=== PATIENT | female | born 1945 | race Caucasian/White ===

== ENCOUNTER 2017-05-26 07:39 | Day surgery (SDC) | payer MEDICARE, BC ==
[~2017-05-26 07:39] MED LIST: ACETAMINOPHEN 325 MG TABLET PO PRN; ACETYLCHOLINE CHLORIDE 20 DROP KIT IO PRN; BUPIVACAINE HCL/PF 30 ML VIAL IJ PRN; CYCLOPENTOLATE HCL 20 DROP BTL RIGHTEYE PRN; DEXTROSE 5%-0.5 NORMAL SALINE 1,000 ML IV PRN; EPINEPHrine 1 MG/ML AMPUL IO PRN; HYALURONATE SODIUM 0.4 ML DISP.SYRIN IO PRN; HYALURONATE SODIUM 0.85 ML DISP.SYRIN IO PRN; LIDOCAINE HCL/PF 200 MG/5 ML AMPUL TP PRN; LIDOCAINE HCL/PF 5 ML VIAL IO PRN; NORMAL SALINE 3 ML BOX IV PRN; TETRACAINE HCL 150 DROP BTL OP PRN
[2017-05-26] MEDS: TROPICAMIDE 150 DROP BTL RIGHTEYE PRN ×3 (08:14→08:40)
[2017-05-26] MEDS: PHENYLEPHRINE HCL 50 DROP BTL RIGHTEYE PRN ×3 (08:14→08:40)
[2017-05-26] MEDS ORDERED: RINGERS SOLUTION,LACTATED 1,000 ML IV ONE (08:23)
[2017-05-26] MEDS ORDERED: RINGERS SOLUTION,LACTATED 1,000 ML IV PRN (08:34)
[2017-05-26] MEDS ORDERED: LIDOCAINE HCL/PF 200 MG/5 ML AMPUL TP ONE (08:55)
[2017-05-26] MEDS ORDERED: EPINEPHrine 1 MG/ML AMPUL IR ONE (08:55)
[2017-05-26] MEDS ORDERED: LIDOCAINE HCL/PF 5 ML VIAL IJ ONE ×2 (08:55)
[2017-05-26] MEDS ORDERED: HYALURONATE SODIUM 0.85 ML DISP.SYRIN IO ONE (08:55)
[2017-05-26] MEDS ORDERED: ACETYLCHOLINE CHLORIDE 20 DROP KIT IO ONE ×3 (09:05→09:08)
[2017-05-26 10:42] VITALS: BP 158/89
== END 2017-05-26 07:40 | disposition home or self-care (01) ==
LOC: AMB 07:39
PROVIDERS: ATTEND Ophthalmology
PROC: 08RJ3JZ Replacement of Right Lens with Synthetic Substitute, Percutaneous Approach (ICD-10-PCS; principal; 2017-05-26 08:45)
DX: H26.9 Unspecified cataract (principal); E11.9 Type 2 diabetes mellitus without complications; E78.5 Hyperlipidemia, unspecified; J44.9 Chronic obstructive pulmonary disease, unspecified; K21.9 Gastro-esophageal reflux disease without esophagitis; F41.9 Anxiety disorder, unspecified; F17.210 Nicotine dependence, cigarettes, uncomplicated; Z68.29 Body mass index [BMI] 29.0-29.9, adult

== ENCOUNTER 2020-01-26 14:52 | Inpatient (IN) ==
--- NOTE | 2020-01-26 15:48 | ERNOTE ---
Dyspnea - Date Date of Service: 01/26/20 - General Presenting Symptoms: shortness of breath Time Seen by Provider: 01/26/20 15:37 Source: patient, RN notes reviewed, old records Exam Limitations: no limitations - Immun/Allergies/Home Medications Immunizations: IMMUNIZATION HX Immunizations Up to Date Yes History of Influenza Vaccine Yes Hx Pneumococcal Vaccination Yes Allergies/Adverse Reactions: Allergies Iodinated Contrast Media [Iodinated Contrast Media - IV Dye] Allergy (Severe, Verified 01/26/20 15:31) Anaphylaxis iodine Allergy (Severe, Verified 01/26/20 15:31) Anaphylaxis Fish Containing Products Allergy (Intermediate, Verified 01/26/20 15:31) HIVES, SHAKING, "OUT OF IT COMPLETELY" amoxicillin trihydrate [From Amoxil] Allergy (Mild, Verified 01/26/20 15:31) Hives Sulfa (Sulfonamide Antibiotics) Allergy (Mild, Verified 01/26/20 15:31) numbness to face codeine Adverse Reaction (Mild, Verified 01/26/20 15:31) N/V Home Medications: HOME MEDICATIONS Sucralfate [Carafate] 1 gm PO BID 09/16/16 [Last Taken 12/24/18] Ascorbic Acid [Vitamin C] 100 mg PO DAILY 05/16/17 [Last Taken 12/24/18] Cholecalciferol (Vitamin D3) [Vitamin D] 2,000 unit PO DAILY 05/16/17 [Last Taken 12/24/18] HYDROcodone/ACETAMINOPHEN [[place] 5-325] 1 tab PO Q4H PRN 05/16/17 [Last Taken 12/23/18] blood sugar diagnostic See Dose Instructions .ROUTE .MEDSUPPLY #20 ea 06/10/18 [Last Taken 12/24/18] blood-glucose meter See Dose Instructions .ROUTE .MEDSUPPLY #1 ea 06/10/18 [Last Taken 12/24/18] compressor, for nebulizer See Dose Instructions .ROUTE .MEDSUPPLY #1 ea 06/10/18 [Last Taken Unknown] cyanocobalamin (vitamin B-12) 1,000 mcg tablet 1,000 mcg PO DAILY 06/10/18 [Last Taken 12/24/18] lancets 30 gauge See Dose Instructions .ROUTE .MEDSUPPLY #25 ea 06/10/18 [Last Taken 12/24/18] morphine 15 mg tablet,extended release 15 mg PO Q12H tab 06/16/18 [Last Taken 12/24/18] ipratropium 0.5 mg-albuterol 3 mg (2.5 mg base)/3 mL nebulization soln 3 ml IH QID #540 ml 10/06/18 [Last Taken Unknown] albuterol sulfate 90 mcg/actuation aerosol inhaler 2 inh IH Q4H PRN #18 g 11/26/18 [Last Taken 1 Day Ago ~12/24/18] glimepiride 1 mg tablet 1 mg PO DAILY #90 tab 03/24/19 [Last Taken Unknown] spironolactone 25 mg tablet 25 mg PO DAILY #90 tab 05/26/19 [Last Taken Unknown] arformoterol 15 mcg/2 mL solution for nebulization 15 mcg IH BID #120 ml 07/28/19 [Last Taken Unknown] budesonide 0.5 mg/2 mL suspension for nebulization 0.5 mg IH BID #120 ml 07/28/19 [Last Taken Unknown] fluticasone propionate 50 mcg/actuation nasal spray,suspension 2 spray TERRI BID #16 g 07/28/19 [Last Taken Unknown] ipratropium bromide 0.02 % solution for inhalation 2.5 ml IH BID #125 ml 07/28/19 [Last Taken Unknown] metformin 1,000 mg tablet 1,000 mg PO BID #180 tab 07/28/19 [Last Taken Unknown] levothyroxine 25 mcg tablet 25 mcg PO DAILY #90 tab 08/09/19 [Last Taken Unknown] azithromycin 250 mg tablet 250 mg PO DAILY #90 tab 09/30/19 [Last Taken Unknown] prednisone 20 mg tablet 20 mg PO DAILY #90 tab 11/03/19 [Last Taken Unknown] furosemide 40 mg tablet 40 mg PO DAILY #90 tab 12/02/19 [Last Taken Unknown] ondansetron 4 mg disintegrating tablet 8 mg PO BID PRN #90 tab 12/02/19 [Last Taken Unknown] sertraline 50 mg tablet 50 mg PO BID #180 tab 12/02/19 [Last Taken Unknown] losartan 50 mg tablet 50 mg PO DAILY #90 tab 12/24/19 [Last Taken Unknown] levofloxacin 500 mg tablet 500 mg PO DAILY 10 Days #10 tab 01/18/20 [Last Taken Unknown] omeprazole 40 mg capsule,delayed release 40 mg PO DAILY #90 cap 01/18/20 [Last Taken Unknown] simvastatin 20 mg tablet 20 mg PO HS #90 tab 01/18/20 [Last Taken Unknown] - History of Present Illness Narrative: Paris is a 74 year old female sent to the ED from her PCP's office for chest pain and shortness of breath. She reports that she is always short of breath, but she began having pain in her right scapula that radiated around into her chest 3 days ago. She has COPD and has been on Zithromax for a cough with purul ent sputum for 6 days. She is also chronically on prednisone. Her cough continues to be productive of yellow sputum. She wears oxygen at night but has been having to use it during the day for the past few days due to her dyspnea. She denies fevers or chills. She also reports being unable to lay down to sleep at night. Her oxygen saturation was 84% on room air in the clinic and 89% on arrival here. Date (Duration): 01/23/20 Initiating event: Reports: unknown Frequency of episodes: Reports: occassional episodes Modifying Factors - (Improves): Reports: oxygen, rest Modifying Factors (Worsens): Reports: activity, coughing, lying down Associated Symptoms-Dyspnea: Reports: chest pain/discomfort, cough, wheezing, ankle/leg swelling - chronic, not worse than usual. Denies: fever/chills, leg/calf pain Prior Treatment: Reports: recently seen Review of Systems - Review of Systems Constitutional: Present: fatigue, malaise, decreased activity level. Absent: fever, chills EYE: Present: no symptoms reported ENT: Absent: nose congestion, sore throat Respiratory: Present: shortness of breath, cough, orthopnea, wheezing Cardiology: Present: chest pain. Absent: syncope, claudication Gastrointestinal/Abdominal: Absent: nausea, vomiting, abdominal pain Genitourinary: Present: no symptoms reported Musculoskeletal: Absent: muscle pain, joint pain Skin: Absent: rash, lesions Neurological: Absent: headache, dizziness/light-headedness Endocrine: Present: no symptoms reported Hematologic/Lymphatic: Present: easy bruising, easy bleeding Psych: Absent: anxiety Medical History (Last Reviewed 01/26/20 @ 17:23 by Kelsi Donato NP) Wears glasses (Chronic) Wears dentures (Chronic) upper and bottom Myocardial infarction (Chronic) Patient reports two years ago in 2017 stress test was done and showed evidence of [place] in past, they reported not knowing when. Lupus (Chronic) Lung cancer (Chronic) Onset Date: ~2017 non-small cell carcinoma, left upper lobe stage 2 Lumbar spondylosis (Chronic) IBS (irritable bowel syndrome) (Chronic) Hypothyroidism (Chronic) hyperlipidemia (Chronic) Hepatocellular carcinoma (Chronic) GERD (gastroesophageal reflux disease) (Chronic) Fibromyalgia (Chronic) diabetes type II (Chronic) Depression (Chronic) COPD (chronic obstructive pulmonary disease) (Chronic) Onset Date: ~2015 Increase prednisone 10 mg 4 times a day for 10 days then 10 mg daily Augmentin 875 twice daily for 10 days Continue with DuoNeb every 2-4 hour as needed She was given instruction on how to apply for extra help at Medicare part D To call back if no better Advised to stop smoking Continue all current medication Anxiety (Chronic) Current tobacco use 3 cigs per day Full dentures No history of alcohol use Weight loss, abnormal 20 lbs Arthritis Cataract, bilateral Chronic bronchitis Chronic pain Chronic, continuous use of opioids Macular hole of left eye Onset Date: ~07/2016 Myofascial pain Paralyzed vocal cords Onset Date: ~03/02/18 paralyzed left vocal chord, no sign of malignancy Postlaminectomy syndrome of lumbar region Postlaminectomy syndrome, cervical Primary localized osteoarthrosis of lower leg LEFT Risk taking behavior Surgical History: Surgical History (Last Reviewed 01/26/20 @ 17:24 by Kelsi Donato NP) H/O breast biopsy H/O dilation and curettage multiple H/O esophagogastroduodenoscopy Onset Date: 07/04/16 07/04/16 Chris-clotest negative. H/O neck surgery Onset Date: ~2005 Dr. Wagoner H/O: hysterectomy Onset Date: ~1975 History of appendectomy Onset Date: ~1957 History of bronchoscopy Onset Date: ~201711/19/2017- Giuliana; left upper lobe endobronchial biopsies 12/12/17- Dr. Interiano [facility] History of temporal artery biopsy Onset Date: 12/24/18 [id number] consistent w/treated temporal arteritis. History of tonsillectomy Onset Date: ~1949 Hx of colonoscopy Onset Date: 07/04/16 10/12/07 Bagan-slightly redundant colon, moderate sigmoid diverticulosis. 07/04/16 Chris-normal. Previous back surgery Onset Date: ~1985 S/P epidural steroid injection [facility] - Porfirio Ruiz, [employer] cervical epidural steroid injection at C5-6- has had multiple Wrist fracture, left Onset Date: ~1998 history of arthroscopy of wrist Onset Date: 07/29/01 Dr Owen-w/debridement of triangular fibrocartilage and joint left wrist indirect laryngoscopy with vocal chord injection Onset Date: 03/02/18 Jimbo; left vocal chord injection- prolaryn foam injection left pars plana vitrectomy Onset Date: 02/21/16 ILM peel 14% C3F8 gas OS for chronic macular hole mediastinoscopy Onset Date: 12/12/17 Dr. Interiano [facility]- benign lymphoid tissue from right and left paratracheal lymph nodes, subcarinal lymph node sampling yielded no lymphoid tissue microwave ablation of mass of liver stress test Onset Date: ~11/24/17 normal Family History: Family History (Last Reviewed 01/26/20 @ 17:24 by Kelsi Donato NP) Brother Diabetes Cancer 1 brother w/prostate ca, 1 brother w/lung ca, 1 brother w/pancreatic and liver ca Father , age 70's-FL Heart disease Alcoholic Myocardial infarction Emphysema lung Mother , age 81-diabetes Heart disease Heart failure Diabetes Cardiac dysrhythmia Sister Ovarian cancer 1 sister Diabetes Breast cancer 1 sister COPD (chronic obstructive pulmonary disease) 1 sister Sister COPD (chronic obstructive pulmonary disease) Heart disease Social History: (Last Reviewed 01/26/20 @ 17:24 by Kelsi Donato NP) Social History: Marital status: / household members: none number of children: 4 current occupational status: retired Highest education level completed: high school graduate Service: No Tobacco: Smoking Status: Current every day smoker tobacco type: cigarettes Smoking cigarettes per day: 10.0 Smoking packs per day: 0.5 Alcohol: alcohol intake: never Substance Use: substance use type: does not use Dietary Habits: caffeine: Yes Type: coffee, tea Personal Safety: victim of physical abuse: No victim of emotional abuse: No Physical Exam - Physical Exam General Appearance: Present: wd/wn, alert, mild distress Head Exam: Present: normal inspection Eye Exam: Normal inspection: bilateral Neck: Present: normal inspection, nontender, supple, full range of motion Respiratory: Present: accessory muscle use - dyspneic at rest, worse with exertion, expiration (prolonged), wheezing - throughout lung valenzuela on expiration Cardiovascular/Chest: Present: regular rate, rhythm, no murmur, normal peripheral pulses Gastrointestinal/Abdominal: Present: nontender, nondistended, soft Back Exam: Present: normal inspection, no vertebral tenderness Extremity Exam: Present: non-tender, normal range of motion, pedal edema - mild Neurological Exam: Present: alert, oriented, normal mood/affect, no motor/sensory deficits Skin Exam: Present: warm/dry, pallor Progress - Results and Orders Patient's Lab Results:: I have reviewed the patient's lab results. - Vital Signs Patient's Vital Signs:: I have reviewed the patient's vital signs. Vital Signs: Vital Signs 01/26/20 15:28 Temperature 36.7 C Pulse Rate 102 H Respiratory Rate 20 Blood Pressure 144/61 O2 Sat by Pulse Oximetry 92 L - X-Ray X-Ray #1 X-Ray: chest Interpretation: Reviewed by me X-ray Comments: No acute cardiopulmonary findings - Progress/Reassessment Chief Complaint: Dyspnea Progress:: Improved Plan - Plan Plan: The patient has been treated for a COPD exacerbation for 6 days with Zithromax without improvement. She continues to have dyspnea, a cough with purulent sputum and is not able to maintain her oxygen saturation above 89% on room air. Her lactic acid is elevated at 3.7 but she does not meet SIRS criteria. Blood cultures are pending. She is receiving a liter of NS and a gram of Rocephin IV. Her Ddimer is elevated at 0.62 but is not significant when adjusted for age. BNP is mildly elevated but the patient has no signs of overt failure. She is anemic with a Hgb of 8. This has been gradually declining Dr. Anna was contacted and the patient will be admitted to observation status. Departure Clinical Impression: COPD exacerbation, Failure of outpatient treatment, Hypoxia - Departure Disposition: Still a patient Condition: Stable Referrals: Jozef Rosario MD [Primary Care Provider] -
[2020-01-26 16:12] LABS: Hematocrit 26.9 % (37.0-47.0); Mean Cell Volume 87.6 fl (78-100); Mean Corpuscular Hemoglobin 26.1 pg (27-31); Mean Corpuscular Hgb Conc 29.7 g/dl (32-36); Mean Platelet Volume 8.8 fl (8-12.5); Neutrophil # 6.7 K/mm3 (1.3-6.0); Platelet Count 243 K/mm3 (150-450); Red Blood Count 3.07 M/mm3 (4.2-5.4); Red Cell Distribution Width 16.5 % (11.5-14.0); White Blood Count 7.4 K/mm3 (4.0-10.5)
[2020-01-26 16:23] LABS: Albumin * 3.3 gm/dl (3.4-5.0); Anion Gap 16.2 mmol/L (6.8-13.8); BUN/Creatinine Ratio 12.4 (9.0-21.6); Bilirubin, Total 0.5 mg/dL (0.0-1.1); Ca. Corrected For Albumin 9.2 mg/dL (8.4-10.2); Carbon Dioxide 26.2 mmol/L (24-32.6); Potassium 4.4 mmol/L (3.4-4.6); Total Protein 6.7 gm/dL (6.2-8.2); Troponin I 0.017 ng/mL (0.00-0.10)
[2020-01-26] MEDS ORDERED: cefTRIAXone SODIUM 1,000 MG/100 ML BAG IV ONE (16:39)
[2020-01-26] MEDS ORDERED: NORMAL SALINE 1,000 ML IV ONE (16:39)
[2020-01-26] MEDS ORDERED: MORPHINE SULFATE 2 MG/ML DISP.SYRIN IV ONE (16:58)
[2020-01-26] MEDS ORDERED: MORPHINE SULFATE 2 MG/ML DISP.SYRIN ONE (17:25)
[2020-01-26] MEDS ORDERED: METHYLPREDNISOLONE SOD SUCC/PF 125 MG/2 ML VIAL IV ONE (18:40)
[2020-01-26] MEDS ORDERED: ONDANSETRON 4 MG TAB.RAPDIS PO PRN (18:41)
--- NOTE | 2020-01-26 18:46 | HP ---
Chief Complaint - Chief Complaint Date of Service: 01/26/20 Time of Service: 18:46 Chief Complaint: Shortness of breath History of Present Illness: Paris is a 74 yo female with PMH of COPD and lung cancer. She is in remission from lung cancer but frequently gets COPD exacerbations. She called into Dr. Rosario's office a few days ago with symptoms of COPDE and was started on azithromycin, she reports not feeling better and presented to the ER today. She was hypoxic with oxygen at 84% and placed on 2lpm via NC. She uses oxygen just at night at home. She follows with Dr. Bates (Pulmonology). She denies fever, chills, sweats, or body aches. She denies recent ill exposures. Chest xray shows no acute changes. Medical History (Last Reviewed 01/26/20 @ 18:50 by Ledy Esteban RN) Wears glasses (Chronic) Wears dentures (Chronic) upper and bottom Myocardial infarction (Chronic) Patient reports two years ago in 2017 stress test was done and showed evidence of NV in past, they reported not knowing when. Lupus (Chronic) Lung cancer (Chronic) Onset Date: ~2017 non-small cell carcinoma, left upper lobe stage 2 Lumbar spondylosis (Chronic) IBS (irritable bowel syndrome) (Chronic) Hypothyroidism (Chronic) hyperlipidemia (Chronic) Hepatocellular carcinoma (Chronic) GERD (gastroesophageal reflux disease) (Chronic) Fibromyalgia (Chronic) diabetes type II (Chronic) Depression (Chronic) COPD (chronic obstructive pulmonary disease) (Chronic) Onset Date: ~2015 Increase prednisone 10 mg 4 times a day for 10 days then 10 mg daily Augmentin 875 twice daily for 10 days Continue with DuoNeb every 2-4 hour as needed She was given instruction on how to apply for extra help at Medicare part D To call back if no better Advised to stop smoking Continue all current medication Anxiety (Chronic) Current tobacco use 3 cigs per day Full dentures No history of alcohol use Weight loss, abnormal 20 lbs Arthritis Cataract, bilateral Chronic bronchitis Chronic pain Chronic, continuous use of opioids Macular hole of left eye Onset Date: ~07/2016 Myofascial pain Paralyzed vocal cords Onset Date: ~03/02/18 paralyzed left vocal chord, no sign of malignancy Postlaminectomy syndrome of lumbar region Postlaminectomy syndrome, cervical Primary localized osteoarthrosis of lower leg LEFT Risk taking behavior Surgical History: Surgical History (Last Reviewed 01/26/20 @ 18:50 by Ledy Esteban, QUINN) H/O breast biopsy H/O dilation and curettage multiple H/O esophagogastroduodenoscopy Onset Date: 07/04/16 07/04/16 Chris-clotest negative. H/O neck surgery Onset Date: ~2005 Dr. Wagoner H/O: hysterectomy Onset Date: ~1975 History of appendectomy Onset Date: ~1957 History of bronchoscopy Onset Date: ~201711/19/2017- Giuliana; left upper lobe endobronchial biopsies 12/12/17- Dr. Jaydon VERMA History of temporal artery biopsy Onset Date: 12/24/18 [id number] consistent w/treated temporal arteritis. History of tonsillectomy Onset Date: ~1949 Hx of colonoscopy Onset Date: 07/04/16 10/12/07 Mikel-slightly redundant colon, moderate sigmoid diverticulosis. 07/04/16 Chris-normal. Previous back surgery Onset Date: ~1985 S/P epidural steroid injection [facility] - Porfirio Ruiz, STEERSMAN cervical epidural steroid injection at C5-6- has had multiple Wrist fracture, left Onset Date: ~1998 history of arthroscopy of wrist Onset Date: 07/29/01 Dr Owen-w/debridement of triangular fibrocartilage and joint left wrist indirect laryngoscopy with vocal chord injection Onset Date: 03/02/18 Jimbo; left vocal chord injection- prolaryn foam injection left pars plana vitrectomy Onset Date: 02/21/16 ILM peel 14% C3F8 gas OS for chronic macular hole mediastinoscopy Onset Date: 12/12/17 Dr. Interiano CATRACHO- benign lymphoid tissue from right and left paratracheal lymph nodes, subcarinal lymph node sampling yielded no lymphoid tissue microwave ablation of mass of liver stress test Onset Date: ~11/24/17 normal Family History: Family History (Last Reviewed 01/26/20 @ 18:50 by Ledy Esteban, QUINN) Brother Diabetes Cancer 1 brother w/prostate ca, 1 brother w/lung ca, 1 brother w/pancreatic and liver ca Father , age 70's-NV Heart disease Alcoholic Myocardial infarction Emphysema lung Mother , age 81-diabetes Heart disease Heart failure Diabetes Cardiac dysrhythmia Sister Ovarian cancer 1 sister Diabetes Breast cancer 1 sister COPD (chronic obstructive pulmonary disease) 1 sister Sister COPD (chronic obstructive pulmonary disease) Heart disease Social History: (Last Updated 01/26/20 @ 18:51 by Ledy Esteban RN) Social History: Marital status: / household members: none number of children: 4 current occupational status: retired Highest education level completed: high school graduate Service: No Tobacco: Smoking Status: Current every day smoker tobacco type: cigarettes Smoking cigarettes per day: 0 Smoking packs per day: 0 Years smoked: 51 Smoking End Date: 07/24/19 Alcohol: alcohol intake: never Substance Use: substance use type: does not use Dietary Habits: caffeine: Yes Type: coffee, tea Personal Safety: victim of physical abuse: No victim of emotional abuse: No Review Of Systems (GEN) - Review of Systems Generalized/Overall Review: Present: Weakness. Absent: Chills, Fever EENTM: Present: No Symptoms Reported Respiratory: Present: Cough, Shortness of Breath, Wheezing Cardiac: Present: Chest Pain. Absent: Edema, Palpitations Abdominal: Absent: Nausea, Vomiting Genitourinary: Absent: Burning, Urgency Musculoskeletal: Absent: Joint Pain, Back Pain Neurological: Absent: Headache, Numbness Skin: Absent: Lesions, Rash Endocrine: Absent: Increased Hunger, Increased Thirst Immunizations: IMMUNIZATION HX Immunizations Up to Date Yes History of Influenza Vaccine Yes Hx Pneumococcal Vaccination Yes Allergies/Adverse Reactions: Allergies Allergy/AdvReac Type Severity Reaction Status Date / Time Iodinated Contrast Media Allergy Severe Anaphylaxis Verified 01/26/20 15:31 [Iodinated Contrast Media - IV Dye] iodine Allergy Severe Anaphylaxis Verified 01/26/20 15:31 Fish Containing Products Allergy Intermediate HIVES, Verified 01/26/20 15:31 SHAKING, "OUT OF IT COMPLETELY" amoxicillin trihydrate Allergy Mild Hives Verified 01/26/20 15:31 [From Amoxil] Sulfa (Sulfonamide Allergy Mild numbness Verified 01/26/20 15:31 Antibiotics) to face codeine AdvReac Mild N/V Verified 01/26/20 15:31 Home Medications: HOME MEDICATIONS Sucralfate [Carafate] 1 gm PO BID 09/16/16 [Last Taken 12/24/18] Ascorbic Acid [Vitamin C] 100 mg PO DAILY 05/16/17 [Last Taken 12/24/18] Cholecalciferol (Vitamin D3) [Vitamin D] 2,000 unit PO DAILY 05/16/17 [Last Taken 12/24/18] HYDROcodone/ACETAMINOPHEN [Zap 5-325] 1 tab PO Q4H PRN 05/16/17 [Last Taken 12/23/18] blood sugar diagnostic See Dose Instructions .ROUTE .MEDSUPPLY #20 ea 06/10/18 [Last Taken 12/24/18] blood-glucose meter See Dose Instructions .ROUTE .MEDSUPPLY #1 ea 06/10/18 [Last Taken 12/24/18] compressor, for nebulizer See Dose Instructions .ROUTE .MEDSUPPLY #1 ea 06/10/18 [Last Taken Unknown] cyanocobalamin (vitamin B-12) 1,000 mcg tablet 1,000 mcg PO DAILY 06/10/18 [Last Taken 12/24/18] lancets 30 gauge See Dose Instructions .ROUTE .MEDSUPPLY #25 ea 06/10/18 [Last Taken 12/24/18] morphine 15 mg tablet,extended release 15 mg PO Q12H tab 06/16/18 [Last Taken 12/24/18] ipratropium 0.5 mg-albuterol 3 mg (2.5 mg base)/3 mL nebulization soln 3 ml IH QID #540 ml 10/06/18 [Last Taken Unknown] glimepiride 1 mg tablet 1 mg PO DAILY #90 tab 03/24/19 [Last Taken Unknown] spironolactone 25 mg tablet 25 mg PO DAILY #90 tab 05/26/19 [Last Taken Unknown] arformoterol 15 mcg/2 mL solution for nebulization 15 mcg IH BID #120 ml 07/28/19 [Last Taken Unknown] budesonide 0.5 mg/2 mL suspension for nebulization 0.5 mg IH BID #120 ml 07/28/19 [Last Taken Unknown] fluticasone propionate 50 mcg/actuation nasal spray,suspension 2 spray TERRI BID #16 g 07/28/19 [Last Taken Unknown] ipratropium bromide 0.02 % solution for inhalation 2.5 ml IH BID #125 ml 07/28/19 [Last Taken Unknown] metformin 1,000 mg tablet 1,000 mg PO BID #180 tab 07/28/19 [Last Taken Unknown] levothyroxine 25 mcg tablet 25 mcg PO DAILY #90 tab 08/09/19 [Last Taken Unknown] azithromycin 250 mg tablet 250 mg PO DAILY #90 tab 09/30/19 [Last Taken Unknown] prednisone 20 mg tablet 20 mg PO DAILY #90 tab 11/03/19 [Last Taken Unknown] furosemide 40 mg tablet 40 mg PO DAILY #90 tab 12/02/19 [Last Taken Unknown] ondansetron 4 mg disintegrating tablet 8 mg PO BID PRN #90 tab 12/02/19 [Last Taken Unknown] sertraline 50 mg tablet 50 mg PO BID #180 tab 12/02/19 [Last Taken Unknown] losartan 50 mg tablet 50 mg PO DAILY #90 tab 12/24/19 [Last Taken Unknown] levofloxacin 500 mg tablet 500 mg PO DAILY 10 Days #10 tab 01/18/20 [Last Taken Unknown] omeprazole 40 mg capsule,delayed release 40 mg PO DAILY #90 cap 01/18/20 [Last Taken Unknown] simvastatin 20 mg tablet 20 mg PO HS #90 tab 01/18/20 [Last Taken Unknown] Albuterol Sulfate [Ventolin HFA] 2 inh INHALATION QID PRN 01/26/20 [Last Taken Unknown] Exam - Exam Vital Signs: Vital Signs - Last Taken Temp 36.7 C 01/26/20 18:07 Pulse 94 01/26/20 18:07 Resp 21 H 01/26/20 18:07 BP 135/57 01/26/20 17:40 Pulse Ox 97 01/26/20 18:07 Constitutional: Present: Alert, Oriented x3, Cooperative ENT Exam: Present: hearing grossly normal Eye Exam: bilateral eye: normal inspection Respiratory: Present: decreased breath sounds, wheezing Cardiovascular/Chest: Present: regular rate, rhythm, no murmur Peripheral Pulses: radial (R): 2+, radial (L): 2+ Abdomen: Present: Normal bowel sounds, soft, nontender, nondistended Extremity: Present: normal capillary refill, lower extremity edema - 1+ Skin Exam: Present: normal color, warm/dry, no cyanosis Appearance: Present: appropriate appearance, appropriate insight Eye contact: Present: cooperative, good eye contact, normal speech Thoughts: Present: normal thought pattern, no apparent hallucination Diagnostic Studies: Abnormal Lab Results 01/26/20 01/26/20 01/26/20 Range/Units 15:59 15:59 15:59 RBC 3.07 L (4.2-5.4) M/mm3 Hgb 8.0 L (12.5-16.0) gm/dL Hct 26.9 L (37.0-47.0) % MCH 26.1 L (27-31) pg MCHC 29.7 L (32-36) g/dl RDW 16.5 H (11.5-14.0) % Immature Gran % (Auto) 1.40 H (0.001-0.429) % Immature Gran # (Auto) 0.10 H (0.000-0.0310) K/mm3 Neutrophils % 91.0 H (42-75.0) % Lymphocytes % 4.1 L (20-51) % Neutrophils # 6.7 H (1.3-6.0) K/mm3 Lymphocytes # 0.30 L (1.5-3.5) k/mm3 D-Dimer 0.62 H (0.19-0.49) ug/mL Plasma Sodium 144 H (130-142) mmol/L Anion Gap 16.2 H (6.8-13.8) mmol/L Est GFR (Non-Af Amer) 50 L (60-130) mL/min Random Glucose 342 H (70-110) mg/dL Lactic Acid, Venous (0.4-2.0) mmol/L ALT 17 L (19-67) U/L B-Natriuretic Peptide (5-325) pg/mL Albumin 3.3 L (3.4-5.0) gm/dl 01/26/20 01/26/20 Range/Units 15:59 16:16 RBC (4.2-5.4) M/mm3 Hgb (12.5-16.0) gm/dL Hct (37.0-47.0) % MCH (27-31) pg MCHC (32-36) g/dl RDW (11.5-14.0) % Immature Gran % (Auto) (0.001-0.429) % Immature Gran # (Auto) (0.000-0.0310) K/mm3 Neutrophils % (42-75.0) % Lymphocytes % (20-51) % Neutrophils # (1.3-6.0) K/mm3 Lymphocytes # (1.5-3.5) k/mm3 D-Dimer (0.19-0.49) ug/mL Plasma Sodium (130-142) mmol/L Anion Gap (6.8-13.8) mmol/L Est GFR (Non-Af Amer) (60-130) mL/min Random Glucose (70-110) mg/dL Lactic Acid, Venous 3.7 H* (0.4-2.0) mmol/L ALT (19-67) U/L B-Natriuretic Peptide 1120 H (5-325) pg/mL Albumin (3.4-5.0) gm/dl Laboratory Results WBC 7.4 K/mm3 (4.0-10.5) 01/26/20 15:59 RBC 3.07 M/mm3 (4.2-5.4) L 01/26/20 15:59 Hgb 8.0 gm/dL (12.5-16.0) L 01/26/20 15:59 Hct 26.9 % (37.0-47.0) L 01/26/20 15:59 MCV 87.6 fl (78-100) 01/26/20 15:59 MCH 26.1 pg (27-31) L 01/26/20 15:59 MCHC 29.7 g/dl (32-36) L 01/26/20 15:59 RDW 16.5 % (11.5-14.0) H 01/26/20 15:59 Plt Count 243 K/mm3 (150-450) 01/26/20 15:59 MPV 8.8 fl (8-12.5) 01/26/20 15:59 Immature Gran % (Auto) 1.40 % (0.001-0.429) H 01/26/20 15:59 Immature Gran # (Auto) 0.10 K/mm3 (0.000-0.0310) H 01/26/20 15:59 Neutrophils % 91.0 % (42-75.0) H 01/26/20 15:59 Lymphocytes % 4.1 % (20-51) L 01/26/20 15:59 Monocytes % 2.3 % (0.0-9) 01/26/20 15:59 Eosinophils % 0.7 % (0.0-3.0) 01/26/20 15:59 Basophils % 0.5 % (0.0-1.0) 01/26/20 15:59 Nucleated RBC % 0.0 k/mm3 (0-1) 01/26/20 15:59 Neutrophils # 6.7 K/mm3 (1.3-6.0) H 01/26/20 15:59 Lymphocytes # 0.30 k/mm3 (1.5-3.5) L 01/26/20 15:59 Monocytes # 0.2 k/mm3 (0.0-1.0) 01/26/20 15:59 Eosinophils # 0.1 k/mm3 (0.0-0.7) 01/26/20 15:59 Absolute Basophils 0.0 k/mm3 (0.0-0.1) 01/26/20 15:59 D-Dimer 0.62 ug/mL (0.19-0.49) H 01/26/20 15:59 Sodium 140 mmol/L (132-142) 01/26/20 15:59 Plasma Sodium 144 mmol/L (130-142) H 01/26/20 15:59 Potassium 4.4 mmol/L (3.4-4.6) 01/26/20 15:59 Chloride 102 mmol/L (97-106) 01/26/20 15:59 Carbon Dioxide 26.2 mmol/L (24-32.6) 01/26/20 15:59 Anion Gap 16.2 mmol/L (6.8-13.8) H 01/26/20 15:59 BUN 14 mg/dL (3-23) 01/26/20 15:59 Creatinine 1.13 mg/dL (0.4-1.4) 01/26/20 15:59 Est GFR (Non-Af Amer) 50 mL/min (60-130) L 01/26/20 15:59 BUN/Creatinine Ratio 12.4 (9.0-21.6) 01/26/20 15:59 Random Glucose 342 mg/dL (70-110) H 01/26/20 15:59 Lactic Acid, Venous 3.7 mmol/L (0.4-2.0) H* 01/26/20 15:59 Calcium 9.0 mg/dL (7.9-10.9) 01/26/20 15:59 Calcium Adj for Albumin 9.2 mg/dL (8.4-10.2) 01/26/20 15:59 Total Bilirubin 0.5 mg/dL (0.0-1.1) 01/26/20 15:59 AST 14 U/L (0-48) 01/26/20 15:59 ALT 17 U/L (19-67) L 01/26/20 15:59 Alkaline Phosphatase 62 U/L (50-170) 01/26/20 15:59 Troponin I 0.017 ng/mL (0.00-0.10) 01/26/20 15:59 B-Natriuretic Peptide 1120 pg/mL (5-325) H 01/26/20 16:16 Total Protein 6.7 gm/dL (6.2-8.2) 01/26/20 15:59 Albumin 3.3 gm/dl (3.4-5.0) L 01/26/20 15:59 Assessment/Plan - Narrative Narrative: Paris is a 74 yo female with: 1) Acute on Chronic Respiratory Failure secondary to COPDE- Requiring 3lpm currently to keep sats >90%. She chronically uses 2lpm via NC at night only 2) COPD Exacerbation - She has deminished lung soungs and wheezing with increased shortness of breath. Chest xray shows no pneumonia. Will treat with rocephin, azithromycin, steroids, duonebs, cornet, and Incentive Spirometer. Will attempt to wean from oxygen with treatment. Will admit to acute inpatient status as she has failed outpatient treatment of azithromycin alone and has acute respiratory failure requiring more oxygen then she does on baseline. 3) Chronic history of lung cancer although reportedly in remission. - Assessment/Plan (1) Acute and chronic respiratory failure with hypoxia Problem: Acute (2) COPD exacerbation Problem: Acute (3) Lung cancer Problem: Chronic Qualifiers: Laterality: left Lung location: upper lobe of lung Qualified Code(s): C34.12 - Malignant neoplasm of upper lobe, left bronchus or lung
[2020-01-26] MEDS: ALBUTEROL SULFATE/IPRATROPIUM 3 ML NEBU IH SCH ×2 (19:46→22:41)
[2020-01-26] MEDS: BUDESONIDE 0.5 MG/2 ML VIAL.NEB IH SCH (19:50)
[2020-01-26] MEDS: FORMOTEROL FUMARATE 20 MCG/2 ML VIAL IH SCH (19:50)
[2020-01-26] MEDS ORDERED: METHYLPREDNISOLONE SOD SUCC/PF 125 MG/2 ML VIAL ONE (21:24)
[2020-01-26] MEDS: SIMVASTATIN 20 MG TABLET PO SCH (21:29)
[2020-01-26] MEDS: SERTRALINE HCL 50 MG TABLET PO SCH (21:29)
[2020-01-26] MEDS: SUCRALFATE 1 G TABLET PO SCH (21:30)
[2020-01-26] MEDS: FLUTICASONE PROPIONATE 120 SPRAY INHALER NS SCH (21:30)
[2020-01-26] MEDS: MORPHINE SULFATE 15 MG TABLET.SA PO SCH (21:30)
[2020-01-26] MEDS: HYDROcodone/ACETAMINOPHEN 1 EACH TABLET PO PRN (21:38)
[2020-01-27] MEDS: ALBUTEROL SULFATE/IPRATROPIUM 3 ML NEBU IH SCH ×6 (02:34→22:25)
[2020-01-27] MEDS: BUDESONIDE 0.5 MG/2 ML VIAL.NEB IH SCH ×2 (06:25→18:09)
[2020-01-27] MEDS: LEVOTHYROXINE SODIUM 25 MCG TABLET PO SCH (07:06)
[2020-01-27] MEDS: PANTOPRAZOLE SODIUM 40 MG TABLET.EC PO SCH (07:06)
[2020-01-27] MEDS: MORPHINE SULFATE 15 MG TABLET.SA PO SCH ×2 (08:03→20:33)
[2020-01-27] MEDS ORDERED: AZITHROMYCIN 250 MG TABLET PO SCH (09:00)
[2020-01-27] MEDS: SERTRALINE HCL 50 MG TABLET PO SCH ×2 (09:34→21:38)
[2020-01-27] MEDS: AZITHROMYCIN 250 MG TABLET PO SCH (09:34)
[2020-01-27] MEDS: SPIRONOLACTONE 25 MG TABLET PO SCH (09:34)
[2020-01-27] MEDS: SUCRALFATE 1 G TABLET PO SCH ×2 (09:35→20:33)
[2020-01-27] MEDS: predniSONE 20 MG TABLET PO SCH (09:35)
[2020-01-27] MEDS: FUROSEMIDE 40 MG TABLET PO SCH (09:35)
[2020-01-27] MEDS: GLIMEPIRIDE 2 MG TABLET PO SCH (09:35)
[2020-01-27] MEDS: LOSARTAN POTASSIUM 50 MG TABLET PO SCH (09:35)
[2020-01-27] MEDS: CHOLECALCIFEROL 1,000 UNIT CAPSULE PO SCH (09:36)
[2020-01-27] MEDS: FLUTICASONE PROPIONATE 120 SPRAY INHALER NS SCH ×2 (09:36→20:34)
[2020-01-27] MEDS: CYANOCOBALAMIN 1,000 MCG TABLET PO SCH (09:36)
[2020-01-27] MEDS: HYDROcodone/ACETAMINOPHEN 1 EACH TABLET PO PRN ×2 (09:37→13:58)
[2020-01-27] MEDS: FORMOTEROL FUMARATE 20 MCG/2 ML VIAL IH SCH ×2 (10:29→18:09)
[2020-01-27] MEDS: SIMVASTATIN 20 MG TABLET PO SCH (20:35)
--- NOTE | 2020-01-27 22:37 | PN ---
Subjective - Date and Time Seen Date: 01/27/20 Time: 11:15 Subjective Narrative: Paris reports feeling better. She has weaned off oxygen and is breathing easier. She is still short of breath with walking to the bathroom and has not felt like her breathing would stand walking in the halls. No fever, chills, nausea, or vomiting. Objective - Vitals Vitals: Last Vital Signs Temp 36.7 C 01/27/20 19:12 Pulse 110 H 01/27/20 19:12 Resp 24 H 01/27/20 19:12 BP 144/53 01/27/20 19:12 Pulse Ox 93 01/27/20 19:12 - Exam Constitutional: Present: Alert, Oriented x3, Cooperative Respiratory: Present: decreased breath sounds - improved from yesterday, wheezing Cardiovascular/Chest: Present: regular rate, rhythm, no murmur Abdomen: Present: Normal bowel sounds, soft, nontender, nondistended Extremity: Present: lower extremity edema - 1+ Skin Exam: Present: normal color, warm/dry, no cyanosis Assessment/Plan Plan Narrative: Paris is improved and has weaned off oxygen. Will continue treatment as she is still dyspneic with activity and is not walking in the halls yet. She may be able to discharge to home in the next 1-2 days depending on continued improvement. No changes. - Problems/Diagnosis (1) Acute and chronic respiratory failure with hypoxia Problem: Resolved (2) COPD exacerbation Problem: Acute (3) Lung cancer Problem: Chronic Qualifiers: Laterality: left Lung location: upper lobe of lung Qualified Code(s): C34.12 - Malignant neoplasm of upper lobe, left bronchus or lung
[2020-01-28] MEDS: ALBUTEROL SULFATE/IPRATROPIUM 3 ML NEBU IH SCH ×5 (02:17→18:22)
[2020-01-28] MEDS: BUDESONIDE 0.5 MG/2 ML VIAL.NEB IH SCH ×2 (06:05→18:22)
[2020-01-28] MEDS: FORMOTEROL FUMARATE 20 MCG/2 ML VIAL IH SCH ×2 (06:05→18:22)
[2020-01-28] MEDS: LEVOTHYROXINE SODIUM 25 MCG TABLET PO SCH (06:33)
[2020-01-28] MEDS: PANTOPRAZOLE SODIUM 40 MG TABLET.EC PO SCH (06:33)
[2020-01-28] MEDS: GLIMEPIRIDE 2 MG TABLET PO SCH (08:13)
[2020-01-28] MEDS: SPIRONOLACTONE 25 MG TABLET PO SCH (08:13)
[2020-01-28] MEDS: LOSARTAN POTASSIUM 50 MG TABLET PO SCH (08:14)
[2020-01-28] MEDS: FLUTICASONE PROPIONATE 120 SPRAY INHALER NS SCH ×2 (08:14→20:20)
[2020-01-28] MEDS: FUROSEMIDE 40 MG TABLET PO SCH (08:14)
[2020-01-28] MEDS: CHOLECALCIFEROL 1,000 UNIT CAPSULE PO SCH (08:14)
[2020-01-28] MEDS: predniSONE 20 MG TABLET PO SCH (08:14)
[2020-01-28] MEDS: CYANOCOBALAMIN 1,000 MCG TABLET PO SCH (08:14)
[2020-01-28] MEDS: SUCRALFATE 1 G TABLET PO SCH ×2 (08:14→20:19)
[2020-01-28] MEDS: SERTRALINE HCL 50 MG TABLET PO SCH ×2 (08:15→20:20)
[2020-01-28] MEDS: AZITHROMYCIN 250 MG TABLET PO SCH (08:15)
[2020-01-28] MEDS: MORPHINE SULFATE 15 MG TABLET.SA PO SCH ×2 (08:17→20:19)
[2020-01-28] MEDS: HYDROcodone/ACETAMINOPHEN 1 EACH TABLET PO PRN ×2 (09:37→19:45)
[2020-01-28] MEDS: SIMVASTATIN 20 MG TABLET PO SCH (20:21)
--- NOTE | 2020-01-28 23:16 | PN ---
Subjective - Date and Time Seen Date: 01/28/20 Time: 13:00 Subjective Narrative: Continues to have shortness of breath with ambulation. She was off oxygen during the day but was significantly short of breath after going to the bathroom and was placed back on oxygen. She was then weaned off oxygen at rest. No fever, chills, nausea, or vomiting. Objective - Vitals Vitals: Last Vital Signs Temp 36.6 C 01/28/20 18:13 Pulse 117 H 01/28/20 18:32 Resp 20 01/28/20 18:32 BP 146/57 01/28/20 18:13 Pulse Ox 80 L 01/28/20 18:59 - Exam Constitutional: Present: Alert, Oriented x3, Cooperative Respiratory: Present: decreased breath sounds, wheezing Cardiovascular/Chest: Present: regular rate, rhythm, no murmur Abdomen: Present: Normal bowel sounds, soft, tender - around rib cage Skin Exam: Present: normal color, warm/dry, no cyanosis Assessment/Plan Plan Narrative: Paris is stable but still significantly short of breath with activity. Continue to wean off oxygen during activity and improve activity endurance. Unable to discharge to home today due to significantly dyspneic with ambulation and hypoxic. Continue current treatment. She reports diaphragm and rib cage pain that comes and goes. Suspect costochondritis as cause to pain that should improve with treatment of condition. Continue rocephin/azithromycin, steroids, nebs. May discharge to home when no longer significantly short of breath with activity and hypoxic. - Problems/Diagnosis (1) Acute and chronic respiratory failure with hypoxia Problem: Resolved (2) COPD exacerbation Problem: Acute (3) Lung cancer Problem: Chronic Qualifiers: Laterality: left Lung location: upper lobe of lung Qualified Code(s): C34.12 - Malignant neoplasm of upper lobe, left bronchus or lung
[2020-01-29] MEDS: ALBUTEROL SULFATE/IPRATROPIUM 3 ML NEBU IH SCH ×7 (03:51→22:32)
[2020-01-29] MEDS: BUDESONIDE 0.5 MG/2 ML VIAL.NEB IH SCH ×2 (06:30→18:16)
[2020-01-29] MEDS: FORMOTEROL FUMARATE 20 MCG/2 ML VIAL IH SCH ×2 (06:30→18:16)
[2020-01-29] MEDS: PANTOPRAZOLE SODIUM 40 MG TABLET.EC PO SCH (07:25)
[2020-01-29] MEDS: LEVOTHYROXINE SODIUM 25 MCG TABLET PO SCH (07:25)
[2020-01-29] MEDS: MORPHINE SULFATE 15 MG TABLET.SA PO SCH ×2 (07:25→19:08)
[2020-01-29] MEDS: FLUTICASONE PROPIONATE 120 SPRAY INHALER NS SCH ×2 (09:50→21:09)
[2020-01-29] MEDS: GLIMEPIRIDE 2 MG TABLET PO SCH (09:52)
[2020-01-29] MEDS: predniSONE 20 MG TABLET PO SCH (09:52)
[2020-01-29] MEDS: AZITHROMYCIN 250 MG TABLET PO SCH (09:52)
[2020-01-29] MEDS: LOSARTAN POTASSIUM 50 MG TABLET PO SCH (09:52)
[2020-01-29] MEDS: CYANOCOBALAMIN 1,000 MCG TABLET PO SCH (09:52)
[2020-01-29] MEDS: FUROSEMIDE 40 MG TABLET PO SCH (09:52)
[2020-01-29] MEDS: CHOLECALCIFEROL 1,000 UNIT CAPSULE PO SCH (09:52)
[2020-01-29] MEDS: SPIRONOLACTONE 25 MG TABLET PO SCH (09:52)
[2020-01-29] MEDS: SUCRALFATE 1 G TABLET PO SCH (09:52)
[2020-01-29] MEDS: SERTRALINE HCL 50 MG TABLET PO SCH ×2 (09:58→21:08)
[2020-01-29] MEDS ORDERED: ALBUTEROL SULFATE 2.5 MG/0.5 ML VIAL.NEB IH PRN (10:32)
[2020-01-29 11:29] LABS: Hematocrit 28.8 % (37.0-47.0); Hemoglobin 8.6 gm/dL (12.5-16.0); Mean Cell Volume 86.7 fl (78-100); Mean Corpuscular Hemoglobin 25.9 pg (27-31); Mean Corpuscular Hgb Conc 29.9 g/dl (32-36); Mean Platelet Volume 9.2 fl (8-12.5); Neutrophil # 6.2 K/mm3 (1.3-6.0); Neutrophil % 72.1 % (42-75.0); Platelet Count 277 K/mm3 (150-450); Red Blood Count 3.32 M/mm3 (4.2-5.4); Red Cell Distribution Width 15.8 % (11.5-14.0); White Blood Count 8.6 K/mm3 (4.0-10.5)
[2020-01-29 11:53] LABS: Iron 25 mcg/dL (35-120); Transferrin Sat. (% Sat.) 6 % (15-55)
[2020-01-29 11:56] LABS: Albumin * 3.6 gm/dl (3.4-5.0); Bilirubin, Total 0.4 mg/dL (0.0-1.1); Ca. Corrected For Albumin 9.4 mg/dL (8.4-10.2); Calcium * 9.4 mg/dL (7.9-10.9); Carbon Dioxide 32.4 mmol/L (24-32.6); Potassium 3.4 mmol/L (3.4-4.6); Total Protein 7.2 gm/dL (6.2-8.2)
[2020-01-29] MEDS: SUCRALFATE 1 G/10 ML UDC PO SCH ×3 (12:15→21:08)
--- NOTE | 2020-01-29 17:29 | PN ---
Subjective - Date and Time Seen Date: 01/29/20 Time: 09:15 Subjective Narrative: Vaishali Harvey is a 74-year-old patient of Dr. Anan who had been admitted for acute exacerbation of COPD and failure of outpatient therapy. Today she is complaining of some substernal midepigastric pain that is radiating around from the anterior midepigastrium around to the right into the back. She has a history of lung cancer which is been treated with chemotherapy and radiation and has been in remission for the past 3 years. Tumor apparently was in this same area. She also has a history of GERD and takes medication for that. She is also diabetic and had not been restarted on her metformin. Objective - Review of Systems Generalized/Overall Review: Reports: No Symptoms Reported EENTM: Reports: No Symptoms Reported Respiratory: Reports: Shortness of Breath - Especially with walking short distances to the bathroom and back., Wheezing Cardiac: Reports: No Symptoms Reported Abdominal: Reports: No Symptoms Reported Genitourinary Symptoms: Reports: No Symptoms Reported Musculoskeletal Complaints: Reports: No Symptoms Reported Neurological: Reports: No Symptoms Reported Skin: Reports: No Symptoms Reported Endocrine: Reports: No Symptoms Reported Misc: All systems neg except as marked - Vitals Vitals: Last Vital Signs Temp 36.8 C 01/29/20 14:29 Pulse 96 01/29/20 14:29 Resp 21 H 01/29/20 14:29 BP 137/55 01/29/20 14:29 Pulse Ox 94 01/29/20 14:29 - Abnormal Lab Findings Abnormal Lab Findings: Abnormal Lab Results 01/29/20 01/29/20 01/29/20 Range/Units 11:03 11:03 11:03 RBC 3.32 L (4.2-5.4) M/mm3 Hgb 8.6 L (12.5-16.0) gm/dL Hct 28.8 L (37.0-47.0) % MCH 25.9 L (27-31) pg MCHC 29.9 L (32-36) g/dl RDW 15.8 H (11.5-14.0) % Immature Gran % (Auto) 1.30 H (0.001-0.429) % Immature Gran # (Auto) 0.11 H (0.000-0.0310) K/mm3 Lymphocytes % 15.6 L (20-51) % Neutrophils # 6.2 H (1.3-6.0) K/mm3 Lymphocytes # 1.34 L (1.5-3.5) k/mm3 Percent Retic 2.2 H (0.4-1.8) % Immature Retic Fraction 21.5 H (3.0-15.9) % Retic Hgb Content 22.7 L (29-35) pg BUN 27 H D (3-23) mg/dL BUN/Creatinine Ratio 30.0 H (9.0-21.6) Random Glucose 361 H (70-110) mg/dL Lactic Acid, Venous (0.4-2.0) mmol/L Iron (35-120) mcg/dL Transferrin % Sat (15-55) % 01/29/20 01/29/20 Range/Units 11:03 13:43 RBC (4.2-5.4) M/mm3 Hgb (12.5-16.0) gm/dL Hct (37.0-47.0) % MCH (27-31) pg MCHC (32-36) g/dl RDW (11.5-14.0) % Immature Gran % (Auto) (0.001-0.429) % Immature Gran # (Auto) (0.000-0.0310) K/mm3 Lymphocytes % (20-51) % Neutrophils # (1.3-6.0) K/mm3 Lymphocytes # (1.5-3.5) k/mm3 Percent Retic (0.4-1.8) % Immature Retic Fraction (3.0-15.9) % Retic Hgb Content (29-35) pg BUN (3-23) mg/dL BUN/Creatinine Ratio (9.0-21.6) Random Glucose (70-110) mg/dL Lactic Acid, Venous 3.0 H* (0.4-2.0) mmol/L Iron 25 L (35-120) mcg/dL Transferrin % Sat 6 L (15-55) % - Exam Constitutional: Present: Alert, Oriented x3, Cooperative, Well developed, Well nourished, Mild distress ENT Exam: Present: normal ENT inspection, hearing grossly normal, pharynx normal, TMs normal Neck: Present: non-tender Breasts: Present: Exam deferred Respiratory: Present: chest non-tender, lungs clear, normal breath sounds, no respiratory distress, no accessory muscle use Cardiovascular/Chest: Present: normal peripheral pulses, regular rate, rhythm, no chest tenderness, no edema, no gallop, no JVD, no murmur, no rub Abdomen: Present: Normal bowel sounds, soft /Rectal: Present: Exam deferred Extremity: Present: normal range of motion, non-tender, normal inspection, no pedal edema, no calf tenderness, normal capillary refill Skin Exam: Present: normal color, warm/dry, no cyanosis Lymphatic: Present: no adenopathy Neurologic: Present: web development manager II-XII nml as tested Appearance: Present: appropriate appearance, appropriate insight, neat, no memory impairment Eye contact: Present: cooperative, good eye contact Thoughts: Present: no apparent hallucination Assessment/Plan Plan Narrative: 1. Continue current antibiotic therapy 2. Resume metformin 3. Do serum iron ferritin TIBC and reticulocyte count 4. Do a stool for occult blood test - Problems/Diagnosis (1) Lung cancer Problem: Chronic Qualifiers: Laterality: left Lung location: upper lobe of lung Qualified Code(s): C34.12 - Malignant neoplasm of upper lobe, left bronchus or lung (2) GERD (gastroesophageal reflux disease) Problem: Chronic Qualifiers: Esophagitis presence: without esophagitis Qualified Code(s): K21.9 - Gastro-esophageal reflux disease without esophagitis (3) diabetes type II Problem: Chronic (4) COPD (chronic obstructive pulmonary disease) Problem: Chronic Qualifiers: COPD type: chronic bronchitis Chronic bronchitis type: mucopurulent Qualified Code(s): J41.1 - Mucopurulent chronic bronchitis (5) Anxiety Problem: Chronic
[2020-01-29] MEDS ORDERED: INSULIN LISPRO 100 UNITS/ML VIAL SC STA (17:31)
[2020-01-29] MEDS: metFORMIN HCL 500 MG TABLET PO SCH (18:09)
[2020-01-29] MEDS ORDERED: INSULIN GLARGINE,HUM.REC.ANLOG 100 UNITS/ML VIAL SC SCH (21:00)
[2020-01-29] MEDS: SIMVASTATIN 20 MG TABLET PO SCH (21:08)
[2020-01-29] MEDS: HYDROcodone/ACETAMINOPHEN 1 EACH TABLET PO PRN (23:26)
[2020-01-30] MEDS: ALBUTEROL SULFATE/IPRATROPIUM 3 ML NEBU IH SCH ×6 (02:18→22:57)
[2020-01-30] MEDS: LEVOTHYROXINE SODIUM 25 MCG TABLET PO SCH (06:02)
[2020-01-30] MEDS: FORMOTEROL FUMARATE 20 MCG/2 ML VIAL IH SCH ×2 (06:23→18:40)
[2020-01-30] MEDS: BUDESONIDE 0.5 MG/2 ML VIAL.NEB IH SCH ×2 (06:25→18:40)
[2020-01-30] MEDS: PANTOPRAZOLE SODIUM 40 MG TABLET.EC PO SCH (07:12)
[2020-01-30] MEDS: SUCRALFATE 1 G/10 ML UDC PO SCH ×4 (07:12→20:28)
[2020-01-30] MEDS: INSULIN LISPRO 100 UNITS/ML VIAL SC SCH ×3 (07:14→17:26)
[2020-01-30] MEDS: MORPHINE SULFATE 15 MG TABLET.SA PO SCH ×2 (07:58→20:28)
[2020-01-30] MEDS: SERTRALINE HCL 50 MG TABLET PO SCH ×2 (08:00→20:30)
[2020-01-30] MEDS: metFORMIN HCL 500 MG TABLET PO SCH ×2 (08:00→17:25)
[2020-01-30] MEDS: GLIMEPIRIDE 2 MG TABLET PO SCH (08:00)
[2020-01-30] MEDS: CHOLECALCIFEROL 1,000 UNIT CAPSULE PO SCH (08:00)
[2020-01-30] MEDS: CYANOCOBALAMIN 1,000 MCG TABLET PO SCH (08:00)
[2020-01-30] MEDS: AZITHROMYCIN 250 MG TABLET PO SCH (08:00)
[2020-01-30] MEDS: predniSONE 20 MG TABLET PO SCH (08:01)
[2020-01-30] MEDS: LOSARTAN POTASSIUM 50 MG TABLET PO SCH (08:01)
[2020-01-30] MEDS: FUROSEMIDE 40 MG TABLET PO SCH (08:01)
[2020-01-30] MEDS: SPIRONOLACTONE 25 MG TABLET PO SCH (08:02)
[2020-01-30] MEDS: FLUTICASONE PROPIONATE 120 SPRAY INHALER NS SCH ×2 (08:02→20:28)
--- NOTE | 2020-01-30 11:21 | PN ---
Subjective - Date and Time Seen Date: 01/30/20 Time: 10:35 Subjective Narrative: Aurora is about the same as yesterday. She still gets short of breath with walking short distances. I will keep her in another night. Dr. Anna will assume her care tomorrow morning. No change in therapy today. Repeat CBC and chemistry profile and chest x-ray tomorrow morning. Objective - Review of Systems Generalized/Overall Review: Reports: No Symptoms Reported, Weakness EENTM: Reports: No Symptoms Reported Respiratory: Reports: Cough, Shortness of Breath, Wheezing Cardiac: Reports: No Symptoms Reported Abdominal: Reports: No Symptoms Reported Genitourinary Symptoms: Reports: No Symptoms Reported Musculoskeletal Complaints: Reports: No Symptoms Reported Neurological: Reports: No Symptoms Reported Skin: Reports: No Symptoms Reported Endocrine: Reports: No Symptoms Reported - Vitals Vitals: Last Vital Signs Temp 36.8 C 01/30/20 09:55 Pulse 97 01/30/20 10:05 Resp 20 01/30/20 10:05 BP 144/57 01/30/20 09:55 Pulse Ox 94 01/30/20 10:05 - Abnormal Lab Findings Abnormal Lab Findings: Abnormal Lab Results 01/29/20 01/29/20 01/29/20 Range/Units 11:03 11:03 11:03 RBC 3.32 L (4.2-5.4) M/mm3 Hgb 8.6 L (12.5-16.0) gm/dL Hct 28.8 L (37.0-47.0) % MCH 25.9 L (27-31) pg MCHC 29.9 L (32-36) g/dl RDW 15.8 H (11.5-14.0) % Immature Gran % (Auto) 1.30 H (0.001-0.429) % Immature Gran # (Auto) 0.11 H (0.000-0.0310) K/mm3 Lymphocytes % 15.6 L (20-51) % Neutrophils # 6.2 H (1.3-6.0) K/mm3 Lymphocytes # 1.34 L (1.5-3.5) k/mm3 Percent Retic 2.2 H (0.4-1.8) % Immature Retic Fraction 21.5 H (3.0-15.9) % Retic Hgb Content 22.7 L (29-35) pg BUN 27 H D (3-23) mg/dL BUN/Creatinine Ratio 30.0 H (9.0-21.6) Random Glucose 361 H (70-110) mg/dL Lactic Acid, Venous (0.4-2.0) mmol/L Iron (35-120) mcg/dL Transferrin % Sat (15-55) % 01/29/20 01/29/20 Range/Units 11:03 13:43 RBC (4.2-5.4) M/mm3 Hgb (12.5-16.0) gm/dL Hct (37.0-47.0) % MCH (27-31) pg MCHC (32-36) g/dl RDW (11.5-14.0) % Immature Gran % (Auto) (0.001-0.429) % Immature Gran # (Auto) (0.000-0.0310) K/mm3 Lymphocytes % (20-51) % Neutrophils # (1.3-6.0) K/mm3 Lymphocytes # (1.5-3.5) k/mm3 Percent Retic (0.4-1.8) % Immature Retic Fraction (3.0-15.9) % Retic Hgb Content (29-35) pg BUN (3-23) mg/dL BUN/Creatinine Ratio (9.0-21.6) Random Glucose (70-110) mg/dL Lactic Acid, Venous 3.0 H* (0.4-2.0) mmol/L Iron 25 L (35-120) mcg/dL Transferrin % Sat 6 L (15-55) % - Exam Constitutional: Present: Alert, Oriented x3, Cooperative, Well developed, Well nourished, No distress ENT Exam: Present: normal ENT inspection, hearing grossly normal, pharynx normal, TMs normal Neck: Present: non-tender, full range of motion Breasts: Present: Exam deferred Respiratory: Present: chest non-tender, rhonchi, wheezing, expiration (prolonged) Cardiovascular/Chest: Present: normal peripheral pulses, regular rate, rhythm, no chest tenderness, no edema, no gallop, no JVD, no murmur, no rub Abdomen: Present: Normal bowel sounds, soft, nontender, nondistended, no rebound tenderness, no hepatospenomegaly, no masses /Rectal: Present: Exam deferred Extremity: Present: normal range of motion, non-tender Skin Exam: Present: normal color, warm/dry Lymphatic: Present: no adenopathy Neurologic: Present: harp repairer II-XII nml as tested, normal cerebellar test, no motor/sensory deficits Appearance: Present: appropriate appearance, appropriate insight, neat Eye contact: Present: cooperative, good eye contact, normal speech Thoughts: Present: normal thought pattern, no apparent hallucination Assessment/Plan - Problems/Diagnosis (1) Lung cancer Problem: Chronic Qualifiers: Laterality: left Lung location: upper lobe of lung Qualified Code(s): C34.12 - Malignant neoplasm of upper lobe, left bronchus or lung (2) GERD (gastroesophageal reflux disease) Problem: Chronic Qualifiers: Esophagitis presence: without esophagitis Qualified Code(s): K21.9 - Gastro-esophageal reflux disease without esophagitis (3) diabetes type II Problem: Chronic (4) COPD (chronic obstructive pulmonary disease) Problem: Chronic Qualifiers: COPD type: chronic bronchitis Chronic bronchitis type: mucopurulent Qualified Code(s): J41.1 - Mucopurulent chronic bronchitis (5) Anxiety Problem: Chronic (6) COPD exacerbation Problem: Acute
[2020-01-30] MEDS ORDERED: INSULIN LISPRO 100 UNITS/ML VIAL SC ONE (18:06)
[2020-01-30] MEDS: SIMVASTATIN 20 MG TABLET PO SCH (20:30)
[2020-01-30] MEDS ORDERED: INSULIN GLARGINE,HUM.REC.ANLOG 100 UNITS/ML VIAL SC SCH (21:00)
[2020-01-31] MEDS: ALBUTEROL SULFATE/IPRATROPIUM 3 ML NEBU IH SCH ×4 (03:05→16:21)
[2020-01-31] MEDS: BUDESONIDE 0.5 MG/2 ML VIAL.NEB IH SCH (06:10)
[2020-01-31] MEDS: FORMOTEROL FUMARATE 20 MCG/2 ML VIAL IH SCH (06:10)
[2020-01-31 06:50] LABS: Hematocrit 30.4 % (37.0-47.0); Hemoglobin 9.1 gm/dL (12.5-16.0); Mean Cell Volume 85.4 fl (78-100); Mean Corpuscular Hemoglobin 25.6 pg (27-31); Mean Corpuscular Hgb Conc 29.9 g/dl (32-36); Mean Platelet Volume 8.2 fl (8-12.5); Neutrophil # 6.4 K/mm3 (1.3-6.0); Neutrophil % 67.8 % (42-75.0); Platelet Count 305 K/mm3 (150-450); Red Blood Count 3.56 M/mm3 (4.2-5.4); Red Cell Distribution Width 15.6 % (11.5-14.0); White Blood Count 9.5 K/mm3 (4.0-10.5)
[2020-01-31 07:04] LABS: Albumin * 3.6 gm/dl (3.4-5.0); Anion Gap 11.4 mmol/L (6.8-13.8); BUN/Creatinine Ratio 32.6 (9.0-21.6); Bilirubin, Total 0.3 mg/dL (0.0-1.1); Ca. Corrected For Albumin 9.5 mg/dL (8.4-10.2); Calcium * 9.5 mg/dL (7.9-10.9); Carbon Dioxide 32.9 mmol/L (24-32.6); Potassium 3.3 mmol/L (3.4-4.6); Total Protein 7.2 gm/dL (6.2-8.2)
[2020-01-31] MEDS: LEVOTHYROXINE SODIUM 25 MCG TABLET PO SCH (07:28)
[2020-01-31] MEDS: SUCRALFATE 1 G/10 ML UDC PO SCH ×2 (07:28→11:51)
[2020-01-31] MEDS: PANTOPRAZOLE SODIUM 40 MG TABLET.EC PO SCH (07:28)
[2020-01-31] MEDS: MORPHINE SULFATE 15 MG TABLET.SA PO SCH (07:28)
[2020-01-31] MEDS: INSULIN LISPRO 100 UNITS/ML VIAL SC SCH ×2 (07:34→11:52)
[2020-01-31] MEDS: AZITHROMYCIN 250 MG TABLET PO SCH (09:11)
[2020-01-31] MEDS: GLIMEPIRIDE 2 MG TABLET PO SCH (09:11)
[2020-01-31] MEDS: predniSONE 20 MG TABLET PO SCH (09:11)
[2020-01-31] MEDS: FLUTICASONE PROPIONATE 120 SPRAY INHALER NS SCH (09:11)
[2020-01-31] MEDS: metFORMIN HCL 500 MG TABLET PO SCH (09:12)
[2020-01-31] MEDS: CHOLECALCIFEROL 1,000 UNIT CAPSULE PO SCH (09:12)
[2020-01-31] MEDS: CYANOCOBALAMIN 1,000 MCG TABLET PO SCH (09:12)
[2020-01-31] MEDS: SPIRONOLACTONE 25 MG TABLET PO SCH (09:12)
[2020-01-31] MEDS: SERTRALINE HCL 50 MG TABLET PO SCH (09:12)
[2020-01-31] MEDS: LOSARTAN POTASSIUM 50 MG TABLET PO SCH (09:12)
[2020-01-31] MEDS: FUROSEMIDE 40 MG TABLET PO SCH (09:12)
[2020-01-31] MEDS: HYDROcodone/ACETAMINOPHEN 1 EACH TABLET PO PRN (11:55)
--- NOTE | 2020-01-31 14:03 | DS ---
(1) COPD exacerbation Problem: Acute (2) Steroid-dependent chronic obstructive pulmonary disease Problem: Acute (3) COPD (chronic obstructive pulmonary disease) Problem: Chronic Qualifiers: COPD type: chronic bronchitis Chronic bronchitis type: mucopurulent Qualified Code(s): J41.1 - Mucopurulent chronic bronchitis (4) Lung cancer Problem: Chronic Qualifiers: Laterality: left Lung location: upper lobe of lung Qualified Code(s): C34.12 - Malignant neoplasm of upper lobe, left bronchus or lung (5) GERD (gastroesophageal reflux disease) Problem: Chronic Qualifiers: Esophagitis presence: without esophagitis Qualified Code(s): K21.9 - Gastro-esophageal reflux disease without esophagitis (6) diabetes type II Problem: Chronic (7) Anxiety Problem: Chronic (8) Lactic acidosis Problem: Resolved (9) Acute epigastric pain Problem: Acute Date of Discharge:: 01/31/20 Hospital Course: Paris Dolan is a 74-year-old female patient of Dr. Rosario who has a longstanding history of COPD. She is steroid-dependent. She presented to the emergency room in marked respiratory distress, not moving much air and having audible wheezes. She was treated in the emergency room with respiratory therapy treatments and started on IV antibiotics and steroids. She did not respond very well in the ER and was subsequently admitted to Dr. Anna who then transferred her care to [facility] over the weekend since I was ammonia nitrate operator. She is a longstanding diabetic and blood sugars have been high due to the steroids. Her admission blood sugar was 342. The highest was 367. This morning's is 131. She also has a history of iron deficiency anemia. Her iron is 25 which is low. TIBC is normal. The transferrin percent saturation is less than 6.0 and is low. The admission lactic acid level was elevated at 3.7 and reflexed to 3.1 on 01/26/2020. I repeated it yesterday and initially was still 3.0 but the reflex was down to 1.6. I checked a stool for occult blood which was negative. Her chest x-ray did not show any acute cardiopulmonary circumstance. She does have hyperinflation with increased AP diameter and emphysema due to chronic COPD. Her hemoglobin on admission was 8 g and then increased to 8.4 g and this morning's is 9.1 g. Her white count has been normal surprisingly being on steroids and this morning's was 9500 with a normal differential. Potassium on admission was 4.4 and then dropped to 3.8 and this morning's is 3.3 which is slightly low. She has received respiratory therapy treatments, steroids, and has responded well to therapy and feels like she can go home now to care for herself. Procedures Performed: none Results and Findings: Pending Mircobiology Results 01/26/20 16:19 Blood Blood Culture - Preliminary NO GROWTH AFTER 48 HOURS 01/26/20 15:59 Blood Blood Culture - Preliminary NO GROWTH AFTER 48 HOURS Lab Pending Results 01/26/20 15:59: WBC 7.4, RBC 3.07 L, Hgb 8.0 L, Hct 26.9 L, MCV 87.6, MCH 26.1 L, MCHC 29.7 L, RDW 16.5 H, Plt Count 243, MPV 8.8, Immature Gran % (Auto) 1.40 H, Immature Gran # (Auto) 0.10 H, Neutrophils % 91.0 H, Lymphocytes % 4.1 L, Monocytes % 2.3, Eosinophils % 0.7, Basophils % 0.5, Nucleated RBC % 0.0, Neutrophils # 6.7 H, Lymphocytes # 0.30 L, Monocytes # 0.2, Eosinophils # 0.1, Absolute Basophils 0.0 01/26/20 15:59: Sodium 140, Plasma Sodium 144 H, Potassium 4.4, Chloride 102, Carbon Dioxide 26.2, Anion Gap 16.2 H, BUN 14, Creatinine 1.13, Est GFR (Non-Af Amer) 50 L, BUN/Creatinine Ratio 12.4, Random Glucose 342 H, Calcium 9.0, Calcium Adj for Albumin 9.2, Total Bilirubin 0.5, AST 14, ALT 17 L, Alkaline Phosphatase 62, Troponin I 0.017, Total Protein 6.7, Albumin 3.3 L 01/26/20 15:59: D-Dimer 0.62 H 01/26/20 15:59: Lactic Acid, Venous 3.7 H* 01/26/20 16:16: B-Natriuretic Peptide 1120 H 01/26/20 19:20: Lactic Acid, Venous 3.1 H* 01/29/20 11:03: WBC 8.6, RBC 3.32 L, Hgb 8.6 L, Hct 28.8 L, MCV 86.7, MCH 25.9 L, MCHC 29.9 L, RDW 15.8 H, Plt Count 277, MPV 9.2, Immature Gran % (Auto) 1.30 H, Immature Gran # (Auto) 0.11 H, Neutrophils % 72.1, Lymphocytes % 15.6 L, Monocytes % 8.7, Eosinophils % 1.7, Basophils % 0.6, Nucleated RBC % 0.0, Neutrophils # 6.2 H, Lymphocytes # 1.34 L, Monocytes # 0.8, Eosinophils # 0.2, Absolute Basophils 0.1 01/29/20 11:03: Sodium 138, Plasma Sodium 142, Potassium 3.4 D, Chloride 99, Carbon Dioxide 32.4, Anion Gap 10.0, BUN 27 H D, Creatinine 0.90, Est GFR (Non- Af Amer) 65 D, BUN/Creatinine Ratio 30.0 H, Random Glucose 361 H, Calcium 9.4, Calcium Adj for Albumin 9.4, Ferritin 21, Total Bilirubin 0.4, AST 16, ALT 22, Alkaline Phosphatase 64, Total Protein 7.2, Albumin 3.6 01/29/20 11:03: Absolute Retic 0.0737, Percent Retic 2.2 H, Immature Retic Fraction 21.5 H, Retic Hgb Content 22.7 L 01/29/20 11:03: Iron 25 L, TIBC 388, Transferrin % Sat 6 L 01/29/20 13:43: Lactic Acid, Venous 3.0 H* 01/29/20 20:20: Stool Occult Blood Negative 01/30/20 05:55: Lactic Acid, Venous 1.6 01/31/20 06:35: WBC 9.5, RBC 3.56 L, Hgb 9.1 L, Hct 30.4 L, MCV 85.4, MCH 25.6 L, MCHC 29.9 L, RDW 15.6 H, Plt Count 305, MPV 8.2, Immature Gran % (Auto) 1.00 H, Immature Gran # (Auto) 0.09 H, Neutrophils % 67.8, Lymphocytes % 21.9, Monocytes % 7.0, Eosinophils % 1.8, Basophils % 0.5, Nucleated RBC % 0.0, Neutrophils # 6.4 H, Lymphocytes # 2.07, Monocytes # 0.7, Eosinophils # 0.2, Absolute Basophils 0.1 01/31/20 06:35: Sodium 142, Plasma Sodium 142, Potassium 3.3 L, Chloride 101, Carbon Dioxide 32.9 H, Anion Gap 11.4, BUN 28 H, Creatinine 0.86, Est GFR (Non- Af Amer) 69, BUN/Creatinine Ratio 32.6 H, Random Glucose 131 H D, Calcium 9.5, Calcium Adj for Albumin 9.5, Total Bilirubin 0.3, AST 16, ALT 28, Alkaline Kimberly sphatase 76, Total Protein 7.2, Albumin 3.6 Discharge Location: Home Disposition: Home self-care Condition: Stable Face to Face Encounter completed per [facility] Guidelines: No Discharge Activity: Activity as tolerated Discharge Diet: Consistent carbs Additional Patient Instructions (free text): Patient to be scheduled to see Dr. Rosario in the next 1 to 2 weeks. She will remain on prednisone 20 mg daily until or unless he alters the dose. Dr. Bates ([facility]) previously referred patient for Diabetes Education, scheduled for 02/04/20 at 9:30 with [facility] performance improvement coordinator Complete Home Medications List: Complete Home Medication List: Sucralfate [Carafate] 1 gm PO BID 09/16/16 Ascorbic Acid [Vitamin C] 100 mg PO DAILY 05/16/17 Cholecalciferol (Vitamin D3) [Vitamin D3] 2,000 unit PO DAILY 05/16/17 HYDROcodone/ACETAMINOPHEN [[place] 5-325] 1 tab PO Q4H PRN 05/16/17 blood sugar diagnostic See Dose Instructions .ROUTE .MEDSUPPLY #20 ea 06/10/18 blood-glucose meter See Dose Instructions .ROUTE .MEDSUPPLY #1 ea 06/10/18 compressor, for nebulizer See Dose Instructions .ROUTE .MEDSUPPLY #1 ea 06/10/18 cyanocobalamin (vitamin B-12) 1,000 mcg tablet 1,000 mcg PO DAILY 06/10/18 lancets 30 gauge See Dose Instructions .ROUTE .MEDSUPPLY #25 ea 06/10/18 morphine 15 mg tablet,extended release 15 mg PO Q12H tab 06/16/18 ipratropium 0.5 mg-albuterol 3 mg (2.5 mg base)/3 mL nebulization soln 3 ml IH QID #540 ml 10/06/18 glimepiride 1 mg tablet 1 mg PO DAILY #90 tab 03/24/19 spironolactone 25 mg tablet 25 mg PO DAILY #90 tab 05/26/19 arformoterol 15 mcg/2 mL solution for nebulization 15 mcg IH BID #120 ml 07/28/19 budesonide 0.5 mg/2 mL suspension for nebulization 0.5 mg IH BID #120 ml 07/28/19 fluticasone propionate 50 mcg/actuation nasal spray,suspension 2 spray TERRI BID #16 g 07/28/19 ipratropium bromide 0.02 % solution for inhalation 2.5 ml IH BID #125 ml 07/28/19 metformin 1,000 mg tablet 1,000 mg PO BID #180 tab 07/28/19 levothyroxine 25 mcg tablet 25 mcg PO DAILY #90 tab 08/09/19 azithromycin 250 mg tablet 250 mg PO DAILY #90 tab 09/30/19 prednisone 20 mg tablet 20 mg PO DAILY #90 tab 11/03/19 furosemide 40 mg tablet 40 mg PO DAILY #90 tab 12/02/19 ondansetron 4 mg disintegrating tablet 8 mg PO BID PRN #90 tab 12/02/19 sertraline 50 mg tablet 50 mg PO BID #180 tab 12/02/19 losartan 50 mg tablet 50 mg PO DAILY #90 tab 12/24/19 omeprazole 40 mg capsule,delayed release 40 mg PO DAILY #90 cap 01/18/20 simvastatin 20 mg tablet 20 mg PO HS #90 tab 01/18/20 Albuterol Sulfate [Ventolin Hfa] 2 inh INHALATION QID PRN 01/26/20 Albuterol Sulfate/Ipratropium [Duoneb 2.5-0.5MG/3ML Soln] 3 ml INHALATION Q4HRT #120 nebu 01/31/20 Insulin Glargine,Hum.rec.anlog [Lantus] 30 units SC HS vial 01/31/20 Insulin Lispro [Humalog] 8 units SC ACINS vial 01/31/20 Levofloxacin [Levaquin] 500 mg PO DAILY 7 Days #10 tab 01/31/20 Sucralfate [Carafate Suspension] 1 g PO ACHS #60 gm 01/31/20 metFORMIN HCL [Glucophage] 1,000 mg PO BIDWM tab 01/31/20 predniSONE [Prednisone] 20 mg PO DAILY tab 01/31/20
[2020-01-31] MEDS ORDERED: HEPARIN SOD.,PORCINE 100 UNITS/ML IV ONE (16:13)
[2020-01-31 16:37] VITALS: BP 133/61
== END 2020-01-31 16:48 | disposition home or self-care (01) | DRG 189 ==
LOC: ER 14:52 → MS 14:52
PROVIDERS: ADMIT Family Medicine; ATTEND Family Medicine
DX: E03.9 Hypothyroidism, unspecified; R07.9 Chest pain, unspecified; R10.13 Epigastric pain; Z79.4 Long term (current) use of insulin; F41.9 Anxiety disorder, unspecified; J44.1 Chronic obstructive pulmonary disease with (acute) exacerbation; E87.2 Acidosis; D50.9 Iron deficiency anemia, unspecified; C34.12 Malignant neoplasm of upper lobe, left bronchus or lung; K21.9 Gastro-esophageal reflux disease without esophagitis; F17.210 Nicotine dependence, cigarettes, uncomplicated; R74.0 Nonspecific elevation of levels of transaminase and lactic acid dehydrogenase [LDH]; J96.21 Acute and chronic respiratory failure with hypoxia; E11.65 Type 2 diabetes mellitus with hyperglycemia; T38.0X5A Adverse effect of glucocorticoids and synthetic analogues, initial encounter
CPT/HCPCS: 36415; 71020; 71046; 80053; 82272; 82728; 83519; 83540; 83550; 83605; 83880; 84484; 85025; 85045; 85379; 87040; 87070; 87106; 93005; 94640; 94664; 96365; 96375; 99282; 99285; G0378

== ENCOUNTER 2020-09-21 15:05 | Inpatient (IN) ==
[2020-09-21] MEDS ORDERED: ALBUTEROL SULFATE/IPRATROPIUM 3 ML NEBU IH ONE ×2 (15:28→20:54)
[2020-09-21] MEDS ORDERED: METHYLPREDNISOLONE SOD SUCC/PF 40 MG/ML VIAL IV ONE (15:28)
[2020-09-21 16:05] LABS: Hematocrit 31.8 % (37.0-47.0); Hemoglobin 9.6 gm/dL (12.5-16.0); Mean Cell Volume 89.8 fl (78-100); Mean Corpuscular Hemoglobin 27.1 pg (27-31); Mean Corpuscular Hgb Conc 30.2 g/dl (32-36); Mean Platelet Volume 9.2 fl (8-12.5); Neutrophil # 7.9 K/mm3 (1.3-6.0); Neutrophil % 90.9 % (42-75.0); Platelet Count 206 K/mm3 (150-450); Red Blood Count 3.54 M/mm3 (4.2-5.4); Red Cell Distribution Width 15.3 % (11.5-14.0); White Blood Count 8.7 K/mm3 (4.0-10.5)
[2020-09-21] MEDS ORDERED: ALBUTEROL SULFATE 2.5 MG/0.5 ML VIAL.NEB IH ONE ×2 (16:06→16:43)
[2020-09-21 16:23] LABS: Albumin * 3.5 gm/dl (3.4-5.0); Anion Gap 12.7 mmol/L (6.8-13.8); BUN/Creatinine Ratio 18.9 (9.0-21.6); Bilirubin, Total 0.5 mg/dL (0.0-1.1); Ca. Corrected For Albumin 9.1 mg/dL (8.4-10.2); Carbon Dioxide 26.7 mmol/L (24-32.6); Potassium 5.4 mmol/L (3.4-4.6); Total Protein 6.7 gm/dL (6.2-8.2); Troponin I 0.065 ng/mL (0.00-0.10)
[2020-09-21] MEDS ORDERED: FUROSEMIDE 10 MG/ML VIAL IV ONE (16:27)
--- NOTE | 2020-09-21 17:51 | ERNOTE ---
Dyspnea - Date Date of Service: 09/21/20 - General Presenting Symptoms: shortness of breath Time Seen by Provider: 09/21/20 15:25 Source: patient Exam Limitations: no limitations - Immun/Allergies/Home Medications Immunizations: IMMUNIZATION HX Immunizations Up to Date Yes History of Influenza Vaccine No Hx Pneumococcal Vaccination Yes Allergies/Adverse Reactions: Allergies Iodinated Contrast Media [Iodinated Contrast Media - IV Dye] Allergy (Severe, Verified 09/21/20 15:16) Anaphylaxis iodine Allergy (Severe, Verified 09/21/20 15:16) Anaphylaxis Fish Containing Products Allergy (Intermediate, Verified 09/21/20 15:16) HIVES, SHAKING, "OUT OF IT COMPLETELY" amoxicillin trihydrate [From Amoxil] Allergy (Mild, Verified 09/21/20 15:16) Hives Sulfa (Sulfonamide Antibiotics) Allergy (Mild, Verified 09/21/20 15:16) numbness to face codeine Adverse Reaction (Mild, Verified 09/21/20 15:16) N/V Home Medications: HOME MEDICATIONS Ascorbic Acid [Vitamin C] 100 mg PO DAILY 05/16/17 [Last Taken 12/24/18] Cholecalciferol (Vitamin D3) [Vitamin D3] 2,000 unit PO DAILY 05/16/17 [Last Taken 12/24/18] HYDROcodone/ACETAMINOPHEN [Ventress 5-325] 1 tab PO Q4H PRN 05/16/17 [Last Taken 12/23/18] blood-glucose meter See Dose Instructions .ROUTE .MEDSUPPLY #1 ea 06/10/18 [Last Taken 12/24/18] compressor, for nebulizer See Dose Instructions .ROUTE .MEDSUPPLY #1 ea 06/10/18 [Last Taken Unknown] cyanocobalamin (vitamin B-12) 1,000 mcg tablet 1,000 mcg PO DAILY 06/10/18 [Last Taken 12/24/18] lancets 30 gauge See Dose Instructions .ROUTE .MEDSUPPLY #25 ea 06/10/18 [Last Taken 12/24/18] morphine 15 mg tablet,extended release 15 mg PO Q12H tab 06/16/18 [Last Taken 12/24/18] spironolactone 25 mg tablet 25 mg PO DAILY #90 tab 05/26/19 [Last Taken Unknown] arformoterol 15 mcg/2 mL solution for nebulization 15 mcg IH BID #120 ml 07/28/19 [Last Taken Unknown] budesonide 0.5 mg/2 mL suspension for nebulization 0.5 mg IH BID #120 ml 07/28/19 [Last Taken Unknown] Albuterol Sulfate/Ipratropium [Duoneb 2.5-0.5MG/3ML Soln] 3 ml INHALATION Q4HRT #120 nebu 01/31/20 [Last Taken Unknown] ferrous sulfate 325 mg (65 mg iron) tablet 325 mg PO BID #60 tab 02/01/20 [Last Taken Unknown] pen needle, diabetic 31 gauge x 01/30" See Rx Instructions .ROUTE .MEDSUPPLY #100 ea 02/10/20 [Last Taken Unknown] sucralfate 100 mg/mL oral suspension 1 g PO ACHS #60 gm 02/10/20 [Last Taken Unknown] blood sugar diagnostic See Rx Instructions .ROUTE .MEDSUPPLY #100 ea 02/16/20 [Last Taken Unknown] albuterol sulfate 90 mcg/actuation aerosol inhaler 2 inh IH Q4H PRN #8.5 g 03/15/20 [Last Taken Unknown] azithromycin 250 mg tablet 250 mg PO DAILY #90 tab 05/01/20 [Last Taken Unknown] metformin 1,000 mg tablet 1,000 mg PO BID #180 tab 05/03/20 [Last Taken Unknown] furosemide 40 mg tablet 40 mg PO DAILY #90 tab 06/14/20 [Last Taken Unknown] glimepiride 1 mg tablet 1 mg PO DAILY #90 tab 06/14/20 [Last Taken Unknown] levothyroxine 25 mcg tablet 25 mcg PO DAILY #90 tab 06/14/20 [Last Taken Unknown] Durable Medical Equipment See Rx Instructions .ROUTE .MEDSUPPLY #1 ea 07/06/20 [Last Taken Unknown] fluticasone propionate 50 mcg/actuation nasal spray,suspension 2 spray TERRI BID #16 g 07/06/20 [Last Taken Unknown] losartan 50 mg tablet 50 mg PO DAILY #90 tab 07/06/20 [Last Taken Unknown] insulin glargine 100 unit/mL (3 mL) subcutaneous pen 20 unit SUBCUT HS #15 ml 07/07/20 [Last Taken Unknown] omeprazole 40 mg capsule,delayed release 40 mg PO DAILY #90 cap 07/20/20 [Last Taken Unknown] ondansetron 4 mg disintegrating tablet 8 mg TRANSLINGUAL BID PRN #90 tab 07/20/20 [Last Taken Unknown] sertraline 50 mg tablet 50 mg PO BID #180 tab 07/20/20 [Last Taken Unknown] simvastatin 20 mg tablet 20 mg PO HS #90 tab 07/20/20 [Last Taken Unknown] prednisone 20 mg tablet 20 mg PO DAILY #30 tab 08/24/20 [Last Taken Unknown] - History of Present Illness Narrative: Patient presents to the ED for SOB. This started 3 days ago and has progressed. She has COPD and has been using her oxygen at night. No fever. Has been having some productive cough. No chest pain. No vomiting. Has not seen anyone else for this. Legs seem slightly more swollen than usual. No vomiting. SOB worse with exertion. Better with oxygen and rest. Severity: moderate Treatment [employer]: other - home medications Initiating event: Reports: none Frequency of episodes: Reports: other - hasn't had an episone like this before. Modifying Factors - (Improves): Reports: oxygen Modifying Factors (Worsens): Reports: activity Associated Symptoms-Dyspnea: Denies: fever/chills, weakness Prior Treatment: Denies: recently seen Review of Systems - Review of Systems Constitutional: Absent: fever EYE: Present: no symptoms reported ENT: Absent: sore throat Respiratory: Present: shortness of breath, cough Cardiology: Absent: chest pain Gastrointestinal/Abdominal: Absent: abdominal pain Genitourinary: Present: dysuria Neurological: Absent: weakness All Other Systems: All systems neg except as marked Medical History (Last Reviewed 09/21/20 @ 17:47 by Mayank Li MD) Wears glasses (Chronic) Wears dentures (Chronic) upper and bottom Myocardial infarction (Chronic) Patient reports two years ago in 2017 stress test was done and showed evidence of MN in past, they reported not knowing when. Lupus (Chronic) Lung cancer (Chronic) Onset Date: ~2017 non-small cell carcinoma, left upper lobe stage 2 Lumbar spondylosis (Chronic) IBS (irritable bowel syndrome) (Chronic) Hypothyroidism (Chronic) hyperlipidemia (Chronic) Hepatocellular carcinoma (Chronic) GERD (gastroesophageal reflux disease) (Chronic) Fibromyalgia (Chronic) diabetes type II (Chronic) Depression (Chronic) COPD (chronic obstructive pulmonary disease) (Chronic) Onset Date: ~2015 Continue with DuoNeb every 2-4 hour as needed She was given instruction on how to apply for extra help at Medicare part D To call back if no better Advised to stop smoking Continue all current medication Anxiety (Chronic) Current tobacco use 3 cigs per day Full dentures No history of alcohol use Weight loss, abnormal 20 lbs Arthritis Cataract, bilateral Chronic bronchitis Chronic pain Chronic, continuous use of opioids Macular hole of left eye Onset Date: ~07/2016 Myofascial pain Paralyzed vocal cords Onset Date: ~03/02/18 paralyzed left vocal chord, no sign of malignancy Postlaminectomy syndrome of lumbar region Postlaminectomy syndrome, cervical Primary localized osteoarthrosis of lower leg LEFT Risk taking behavior Surgical History: Surgical History (Last Reviewed 09/21/20 @ 17:47 by Mayank Li MD) H/O breast biopsy H/O dilation and curettage multiple H/O esophagogastroduodenoscopy Onset Date: 07/04/16 07/04/16 Chris-clotest negative. H/O neck surgery Onset Date: ~2005 Dr. Wagoner H/O: hysterectomy Onset Date: ~1975 History of appendectomy Onset Date: ~1957 History of bronchoscopy Onset Date: ~201711/19/2017- Giuliana; left upper lobe endobronchial biopsies 12/12/17- Dr. Interiano [facility] [place] [place] History of temporal artery biopsy Onset Date: 12/24/18 [id number] consistent w/treated temporal arteritis. History of tonsillectomy Onset Date: ~1949 Hx of colonoscopy Onset Date: 07/04/16 10/12/07 Mikel-slightly redundant colon, moderate sigmoid diverticulosis. 07/04/16 Chris-normal. Previous back surgery Onset Date: ~1985 S/P epidural steroid injection [facility] - Porfirio Ruiz CRNA cervical epidural steroid injection at C5-6- has had multiple Wrist fracture, left Onset Date: ~1998 history of arthroscopy of wrist Onset Date: 07/29/01 Dr Owen-w/debridement of triangular fibrocartilage and joint left wrist indirect laryngoscopy with vocal chord injection Onset Date: 03/02/18 Jimbo; left vocal chord injection- prolaryn foam injection left pars plana vitrectomy Onset Date: 02/21/16 ILM peel 14% C3F8 gas OS for chronic macular hole mediastinoscopy Onset Date: 12/12/17 Dr. Interiano [facility] [place] [place]- benign lymphoid tissue from right and left paratracheal lymph nodes, subcarinal lymph node sampling yielded no lymphoid tissue microwave ablation of mass of liver stress test Onset Date: ~11/24/17 normal Family History: Family History (Last Reviewed 09/21/20 @ 17:47 by Mayank Li MD) Brother Diabetes Cancer 1 brother w/prostate ca, 1 brother w/lung ca, 1 brother w/pancreatic and liver ca Father , age 70's-MN Heart disease Alcoholic Myocardial infarction Emphysema lung Mother , age 81-diabetes Heart disease Heart failure Diabetes Cardiac dysrhythmia Sister Ovarian cancer 1 sister Diabetes Breast cancer 1 sister COPD (chronic obstructive pulmonary disease) 1 sister Sister COPD (chronic obstructive pulmonary disease) Heart disease Social History: (Last Reviewed 09/21/20 @ 17:47 by Mayank Li MD) Social History: Marital status: / household members: none number of children: 4 current occupational status: retired Highest education level completed: high school graduate Service: No Tobacco: Smoking Status: Former smoker tobacco type: cigarettes Smoking cigarettes per day: 0 Smoking packs per day: 0 Years smoked: 51 Smoking pack-years: 0.00 Smoking End Date: 07/24/19 Alcohol: alcohol intake: never Substance Use: substance use type: does not use Dietary Habits: caffeine: Yes Type: coffee, tea Personal Safety: victim of physical abuse: No victim of emotional abuse: No Physical Exam - Physical Exam General Appearance: Present: alert, moderate distress, other - tachypnea Head Exam: Present: normal inspection, no evidence of injury Eye Exam: Normal inspection: bilateral, PERRL: bilateral Ears, Nose, Throat: Present: normal ENT inspection Neck: Present: normal inspection Respiratory: Present: other - scattered wheezes, mild/moderate distress Cardiovascular/Chest: Present: regular rate, rhythm, normal peripheral pulses Gastrointestinal/Abdominal: Present: normal bowel sounds, nontender, soft Back Exam: Absent: CVA tenderness (R), CVA tenderness (L) Extremity Exam: Present: extremity edema, other - no findings of DVT Neurological Exam: Present: alert, no motor/sensory deficits Skin Exam: Present: normal color, warm/dry Progress - Results and Orders Patient's Lab Results:: I have reviewed the patient's lab results. - Vital Signs Patient's Vital Signs:: I have reviewed the patient's vital signs. Vital Signs: Vital Signs 09/21/20 15:09 09/21/20 15:38 09/21/20 16:38 Temperature 36.0 C Pulse Rate 101 H 98 95 Respiratory Rate 24 H 28 H 24 H Blood Pressure 168/70 H O2 Sat by Pulse Oximetry 92 L 96 94 09/21/20 16:43 Temperature Pulse Rate 94 Respiratory Rate Blood Pressure 134/76 O2 Sat by Pulse Oximetry - EKG EKG #1 EKG read: Interp. by me EKG Comments: Sinus tachycardia rate 105. Non-specific ST/T wave changes, no STEMI noted. - X-Ray X-Ray #1 X-Ray: chest Interpretation: Interp. by me X-ray Comments: I reviewed x-ray image as well as official radiology report - Progress/Reassessment Chief Complaint: Dyspnea Progress Note-Subjective: 09/21/20 17:49 IV Lasix given and IV solumedrol and neb treatments X 3. She was feeling better but hypoxic and profoundly SOB with exertion. Given this she was started on oxygen and will be admitted. I spoke with Dr Sánchez and she saw the patient in the ED. Patient agreeable. 09/21/20 17:50 Departure Clinical Impression: CHF (congestive heart failure), COPD exacerbation, Hypoxia - Departure Disposition: Still a patient Condition: Fair Referrals: Jozef Rosario MD [Primary Care Provider] -
--- NOTE | 2020-09-21 18:08 | HP ---
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 In the ER she was found to be tachypneic with a heart rate of 28. O2 saturations dropped into the 80s with ambulation. Chest x-ray showed no acute cardiopulmonary disease, blood work was positive for BNP of 4157, last BNP was 1120 in January 2020. In the ER she received a dose of 40 mg of Lasix, methylprednisolone 80 mg, albuterol nebulizer. She is being admitted for COPD exacerbation and possible new onset CHF. Medical History (Last Reviewed 09/21/20 @ 17:47 by Mayank Li MD) Wears glasses (Chronic) Wears dentures (Chronic) upper and bottom Myocardial infarction (Chronic) Patient reports two years ago in 2017 stress test was done and showed evidence of DC in past, they reported not knowing when. Lupus (Chronic) Lung cancer (Chronic) Onset Date: ~2017 non-small cell carcinoma, left upper lobe stage 2 Lumbar spondylosis (Chronic) IBS (irritable bowel syndrome) (Chronic) Hypothyroidism (Chronic) hyperlipidemia (Chronic) Hepatocellular carcinoma (Chronic) GERD (gastroesophageal reflux disease) (Chronic) Fibromyalgia (Chronic) diabetes type II (Chronic) Depression (Chronic) COPD (chronic obstructive pulmonary disease) (Chronic) Onset Date: ~2015 Continue with DuoNeb every 2-4 hour as needed She was given instruction on how to apply for extra help at Medicare part D To call back if no better Advised to stop smoking Continue all current medication Anxiety (Chronic) Current tobacco use 3 cigs per day Full dentures No history of alcohol use Weight loss, abnormal 20 lbs Arthritis Cataract, bilateral Chronic bronchitis Chronic pain Chronic, continuous use of opioids Macular hole of left eye Onset Date: ~07/2016 Myofascial pain Paralyzed vocal cords Onset Date: ~03/02/18 paralyzed left vocal chord, no sign of malignancy Postlaminectomy syndrome of lumbar region Postlaminectomy syndrome, cervical Primary localized osteoarthrosis of lower leg LEFT Risk taking behavior Surgical History: Surgical History (Last Reviewed 09/21/20 @ 17:47 by Mayank Li MD) H/O breast biopsy H/O dilation and curettage multiple H/O esophagogastroduodenoscopy Onset Date: 07/04/16 07/04/16 Chris-clotest negative. H/O neck surgery Onset Date: ~2005 Dr. Wagoner H/O: hysterectomy Onset Date: ~1975 History of appendectomy Onset Date: ~1957 History of bronchoscopy Onset Date: ~201711/19/2017- Giuliana; left upper lobe endobronchial biopsies 12/12/17- Dr. Jaydon VERMA History of temporal artery biopsy Onset Date: 12/24/18 [id number] consistent w/treated temporal arteritis. History of tonsillectomy Onset Date: ~1949 Hx of colonoscopy Onset Date: 07/04/16 10/12/07 Mikel-slightly redundant colon, moderate sigmoid diverticulosis. 07/04/16 Chris-normal. Previous back surgery Onset Date: ~1985 S/P epidural steroid injection [facility] - Porfirio Ruiz, [employer] cervical epidural steroid injection at C5-6- has had multiple Wrist fracture, left Onset Date: ~1998 history of arthroscopy of wrist Onset Date: 07/29/01 Dr Owen-w/debridement of triangular fibrocartilage and joint left wrist indirect laryngoscopy with vocal chord injection Onset Date: 03/02/18 Jimbo; left vocal chord injection- prolaryn foam injection left pars plana vitrectomy Onset Date: 02/21/16 ILM peel 14% C3F8 gas OS for chronic macular hole mediastinoscopy Onset Date: 12/12/17 Dr. Jaydon VERMA- benign lymphoid tissue from right and left paratracheal lymph nodes, subcarinal lymph node sampling yielded no lymphoid tissue microwave ablation of mass of liver stress test Onset Date: ~11/24/17 normal Family History: Family History (Last Reviewed 09/21/20 @ 17:47 by Mayank Li MD) Brother Diabetes Cancer 1 brother w/prostate ca, 1 brother w/lung ca, 1 brother w/pancreatic and liver ca Father , age 70's-DC Heart disease Alcoholic Myocardial infarction Emphysema lung Mother , age 81-diabetes Heart disease Heart failure Diabetes Cardiac dysrhythmia Sister Ovarian cancer 1 sister Diabetes Breast cancer 1 sister COPD (chronic obstructive pulmonary disease) 1 sister Sister COPD (chronic obstructive pulmonary disease) Heart disease Social History: (Last Reviewed 09/21/20 @ 17:47 by Mayank Li MD) Social History: Marital status: / household members: none number of children: 4 current occupational status: retired Highest education level completed: high school graduate Service: No Tobacco: Smoking Status: Former smoker tobacco type: cigarettes Smoking cigarettes per day: 0 Smoking packs per day: 0 Years smoked: 51 Smoking pack-years: 0.00 Smoking End Date: 07/24/19 Alcohol: alcohol intake: never Substance Use: substance use type: does not use Dietary Habits: caffeine: Yes Type: coffee, tea Personal Safety: victim of physical abuse: No victim of emotional abuse: No Review Of Systems (GEN) - Review of Systems Generalized/Overall Review: Absent: Chills, Fever Respiratory: Present: Shortness of Breath Cardiac: Absent: Chest Pain Abdominal: Absent: Abdominal Pain Misc: All systems neg except as marked Immunizations: IMMUNIZATION HX Immunizations Up to Date Yes History of Influenza Vaccine No Hx Pneumococcal Vaccination Yes Allergies/Adverse Reactions: Allergies Allergy/AdvReac Type Severity Reaction Status Date / Time Iodinated Contrast Media Allergy Severe Anaphylaxis Verified 09/21/20 15:16 [Iodinated Contrast Media - IV Dye] iodine Allergy Severe Anaphylaxis Verified 09/21/20 15:16 Fish Containing Products Allergy Intermediate HIVES, Verified 09/21/20 15:16 SHAKING, "OUT OF IT COMPLETELY" amoxicillin trihydrate Allergy Mild Hives Verified 09/21/20 15:16 [From Amoxil] Sulfa (Sulfonamide Allergy Mild numbness Verified 09/21/20 15:16 Antibiotics) to face codeine AdvReac Mild N/V Verified 09/21/20 15:16 Home Medications: HOME MEDICATIONS Ascorbic Acid [Vitamin C] 100 mg PO DAILY 05/16/17 [Last Taken 12/24/18] Cholecalciferol (Vitamin D3) [Vitamin D3] 2,000 unit PO DAILY 05/16/17 [Last Taken 12/24/18] HYDROcodone/ACETAMINOPHEN [Max 5-325] 1 tab PO Q4H PRN 05/16/17 [Last Taken 12/23/18] blood-glucose meter See Dose Instructions .ROUTE .MEDSUPPLY #1 ea 06/10/18 [Last Taken 12/24/18] compressor, for nebulizer See Dose Instructions .ROUTE .MEDSUPPLY #1 ea 06/10/18 [Last Taken Unknown] cyanocobalamin (vitamin B-12) 1,000 mcg tablet 1,000 mcg PO DAILY 06/10/18 [Last Taken 12/24/18] lancets 30 gauge See Dose Instructions .ROUTE .MEDSUPPLY #25 ea 06/10/18 [Last Taken 12/24/18] morphine 15 mg tablet,extended release 15 mg PO Q12H tab 06/16/18 [Last Taken 12/24/18] spironolactone 25 mg tablet 25 mg PO DAILY #90 tab 05/26/19 [Last Taken Unknown] arformoterol 15 mcg/2 mL solution for nebulization 15 mcg IH BID #120 ml 07/18 12/05 [Last Taken Unknown] budesonide 0.5 mg/2 mL suspension for nebulization 0.5 mg IH BID #120 ml 07/28/19 [Last Taken Unknown] Albuterol Sulfate/Ipratropium [Duoneb 2.5-0.5MG/3ML Soln] 3 ml INHALATION Q4HRT #120 nebu 01/31/20 [Last Taken Unknown] ferrous sulfate 325 mg (65 mg iron) tablet 325 mg PO BID #60 tab 02/01/20 [Last Taken Unknown] pen needle, diabetic 31 gauge x 3/16" See Rx Instructions .ROUTE .MEDSUPPLY #100 ea 02/10/20 [Last Taken Unknown] sucralfate 100 mg/mL oral suspension 1 g PO ACHS #60 gm 02/10/20 [Last Taken Unknown] blood sugar diagnostic See Rx Instructions .ROUTE .MEDSUPPLY #100 ea 02/16/20 [Last Taken Unknown] albuterol sulfate 90 mcg/actuation aerosol inhaler 2 inh IH Q4H PRN #8.5 g 03/15/20 [Last Taken Unknown] azithromycin 250 mg tablet 250 mg PO DAILY #90 tab 05/01/20 [Last Taken Unknown] metformin 1,000 mg tablet 1,000 mg PO BID #180 tab 05/03/20 [Last Taken Unknown] furosemide 40 mg tablet 40 mg PO DAILY #90 tab 06/14/20 [Last Taken Unknown] glimepiride 1 mg tablet 1 mg PO DAILY #90 tab 06/14/20 [Last Taken Unknown] levothyroxine 25 mcg tablet 25 mcg PO DAILY #90 tab 06/14/20 [Last Taken Unknown] Durable Medical Equipment See Rx Instructions .ROUTE .MEDSUPPLY #1 ea 07/06/20 [Last Taken Unknown] fluticasone propionate 50 mcg/actuation nasal spray,suspension 2 spray TERRI BID #16 g 07/06/20 [Last Taken Unknown] losartan 50 mg tablet 50 mg PO DAILY #90 tab 07/06/20 [Last Taken Unknown] insulin glargine 100 unit/mL (3 mL) subcutaneous pen 20 unit SUBCUT HS #15 ml 07/07/20 [Last Taken Unknown] omeprazole 40 mg capsule,delayed release 40 mg PO DAILY #90 cap 07/20/20 [Last Taken Unknown] ondansetron 4 mg disintegrating tablet 8 mg TRANSLINGUAL BID PRN #90 tab 07/20/20 [Last Taken Unknown] sertraline 50 mg tablet 50 mg PO BID #180 tab 07/20/20 [Last Taken Unknown] simvastatin 20 mg tablet 20 mg PO HS #90 tab 07/20/20 [Last Taken Unknown] prednisone 20 mg tablet 20 mg PO DAILY #30 tab 08/24/20 [Last Taken Unknown] Exam - Exam Vital Signs: Vital Signs - Last Taken Temp 36.0 C 09/21/20 15:09 Pulse 97 09/21/20 17:40 Resp 18 09/21/20 17:40 BP 134/76 09/21/20 16:43 Pulse Ox 98 09/21/20 17:40 Constitutional: Present: Alert, Cooperative, Well developed, Well nourished, No distress, Elderly ENT Exam: Present: hearing grossly normal, moist mucous membranes Eye Exam: bilateral eye: normal inspection, PERRL, EOMI Neck: Present: non-tender, supple. Absent: lymphadenopathy (R), lymphadenopathy (L) Back Exam: Present: no CVA tenderness, no vertebral tenderness Respiratory: Present: lungs clear, no accessory muscle use, No wheezing. Absent: crackles, rhonchi Cardiovascular/Chest: Present: normal peripheral pulses, regular rate, rhythm, no murmur Peripheral Pulses: dorsalis-pedis (R): 1+, dorsalis-pedis (L): 1+ Abdomen: Present: Normal bowel sounds, soft, nontender Extremity: Present: lower extremity edema - 1+ pitting edema bilateral, left worse than right Skin Exam: Present: normal color, warm/dry Neurologic: Present: alert, normal mood/affect Appearance: Present: appropriate appearance, appropriate insight Eye contact: Present: cooperative Thoughts: Present: normal thought pattern, normal mood /affect Diagnostic Studies: Abnormal Lab Results 09/21/20 09/21/20 09/21/20 Range/Units 15:51 15:51 15:51 RBC 3.54 L (4.2-5.4) M/mm3 Hgb 9.6 L (12.5-16.0) gm/dL Hct 31.8 L (37.0-47.0) % MCHC 30.2 L (32-36) g/dl RDW 15.3 H (11.5-14.0) % Immature Gran % (Auto) 1.00 H (0.001-0.429) % Immature Gran # (Auto) 0.09 H (0.000-0.0310) K/mm3 Neutrophils % 90.9 H (42-75.0) % Lymphocytes % 5.2 L (20-51) % Neutrophils # 7.9 H (1.3-6.0) K/mm3 Lymphocytes # 0.45 L (1.5-3.5) k/mm3 Potassium 5.4 H D (3.4-4.6) mmol/L Est GFR (Non-Af Amer) 46 L (60-130) mL/min Random Glucose 247 H (70-110) mg/dL Lactic Acid, Venous 2.6 H* (0.4-2.0) mmol/L B-Natriuretic Peptide 4157 H (5-325) pg/mL Laboratory Results WBC 8.7 K/mm3 (4.0-10.5) 09/21/20 15:51 RBC 3.54 M/mm3 (4.2-5.4) L 09/21/20 15:51 Hgb 9.6 gm/dL (12.5-16.0) L 09/21/20 15:51 Hct 31.8 % (37.0-47.0) L 09/21/20 15:51 MCV 89.8 fl (78-100) 09/21/20 15:51 MCH 27.1 pg (27-31) 09/21/20 15:51 MCHC 30.2 g/dl (32-36) L 09/21/20 15:51 RDW 15.3 % (11.5-14.0) H 09/21/20 15:51 Plt Count 206 K/mm3 (150-450) 09/21/20 15:51 MPV 9.2 fl (8-12.5) 09/21/20 15:51 Immature Gran % (Auto) 1.00 % (0.001-0.429) H 09/21/20 15:51 Immature Gran # (Auto) 0.09 K/mm3 (0.000-0.0310) H 09/21/20 15:51 Neutrophils % 90.9 % (42-75.0) H 09/21/20 15:51 Lymphocytes % 5.2 % (20-51) L 09/21/20 15:51 Monocytes % 2.2 % (0.0-9) 09/21/20 15:51 Eosinophils % 0.1 % (0.0-3.0) 09/21/20 15:51 Basophils % 0.6 % (0.0-1.0) 09/21/20 15:51 Nucleated RBC % 0.0 k/mm3 (0-1) 09/21/20 15:51 Neutrophils # 7.9 K/mm3 (1.3-6.0) H 09/21/20 15:51 Lymphocytes # 0.45 k/mm3 (1.5-3.5) L 09/21/20 15:51 Monocytes # 0.2 k/mm3 (0.0-1.0) 09/21/20 15:51 Eosinophils # 0.0 k/mm3 (0.0-0.7) 09/21/20 15:51 Absolute Basophils 0.1 k/mm3 (0.0-0.1) 09/21/20 15:51 Sodium 136 mmol/L (132-142) 09/21/20 15:51 Plasma Sodium 138 mmol/L (130-142) 09/21/20 15:51 Potassium 5.4 mmol/L (3.4-4.6) H D 09/21/20 15:51 Chloride 102 mmol/L (97-106) 09/21/20 15:51 Carbon Dioxide 26.7 mmol/L (24-32.6) 09/21/20 15:51 Anion Gap 12.7 mmol/L (6.8-13.8) 09/21/20 15:51 BUN 23 mg/dL (3-23) 09/21/20 15:51 Creatinine 1.22 mg/dL (0.4-1.4) 09/21/20 15:51 Est GFR (Non-Af Amer) 46 mL/min (60-130) L 09/21/20 15:51 BUN/Creatinine Ratio 18.9 (9.0-21.6) 09/21/20 15:51 Random Glucose 247 mg/dL (70-110) H 09/21/20 15:51 Lactic Acid, Venous 2.6 mmol/L (0.4-2.0) H* 09/21/20 15:51 Calcium 9.0 mg/dL (7.9-10.9) 09/21/20 15:51 Calcium Adj for Albumin 9.1 mg/dL (8.4-10.2) 09/21/20 15:51 Total Bilirubin 0.5 mg/dL (0.0-1.1) 09/21/20 15:51 AST 26 U/L (0-48) 09/21/20 15:51 ALT 51 U/L (19-67) 09/21/20 15:51 Alkaline Phosphatase 83 U/L (50-170) 09/21/20 15:51 Troponin I 0.065 ng/mL (0.00-0.10) 09/21/20 15:51 B-Natriuretic Peptide 4157 pg/mL (5-325) H 09/21/20 15:51 Total Protein 6.7 gm/dL (6.2-8.2) 09/21/20 15:51 Albumin 3.5 gm/dl (3.4-5.0) 09/21/20 15:51 SARS-CoV-2 (PCR) Not detected (NotDetected) 09/21/20 15:30 Assessment/Plan - Narrative Narrative: 74-year-old female with a past medical history of COPD, tobacco use, non-small cell carcinoma of the left upper lung lobe, lupus, anxiety, chronic pain, depression, diabetes mellitus type 2, fibromyalgia, GERD, hepatocellular carcinoma, hyperlipidemia, hypothyroidism, DC presents from home with complaints of shortness of breath for the past 3 days that is progressively worsening. In the ER she was found to be tachypneic with a heart rate of 28. O2 saturations dropped into the 80s with ambulation. Chest x-ray showed no acute cardiopulmonary disease, blood work was positive for BNP of 4157, last BNP was 1120 in January 2020. In the ER she received a dose of 40 mg of Lasix, methylprednisolone 80 mg, albuterol nebulizer. She is being admitted for COPD exacerbation and possible new onset CHF. Plan #1 continue with duo nebs, prednisone 40 mg daily #2 continue with Lasix 20 mg IV daily #3 monitor CBC and CMP #4 resume home medications for comorbidities #5 oxygen supplementation as needed #6 strict I's and O's - Assessment/Plan (1) COPD exacerbation Problem: Acute (2) CHF (congestive heart failure) Problem: Acute (3) GERD (gastroesophageal reflux disease) Problem: Chronic (4) PMR (polymyalgia rheumatica) Problem: Chronic (5) Hyperlipidemia Problem: Chronic Qualifiers: (6) Lupus Problem: Chronic Qualifiers: (7) Lung cancer Problem: Chronic Qualifiers: (8) Hypothyroidism Problem: Chronic Qualifiers: (9) Hepatocellular carcinoma Problem: Chronic (10) Fibromyalgia Problem: Chronic (11) diabetes type II Problem: Chronic (12) Steroid-dependent chronic obstructive pulmonary disease Problem: Acute
[2020-09-21] MEDS ORDERED: ONDANSETRON 8 MG TAB.RAPDIS SL PRN (18:10)
[2020-09-21] MEDS ORDERED: HYDROcodone/ACETAMINOPHEN 1 EACH TABLET PO PRN ×2 (18:10)
[2020-09-21] MEDS ORDERED: ONDANSETRON 4 MG TAB.RAPDIS SL PRN (18:10)
[2020-09-21] MEDS ORDERED: ALBUTEROL SULFATE/IPRATROPIUM 3 ML NEBU IH SCH (18:15)
[2020-09-21] MEDS: BUDESONIDE 0.5 MG/2 ML VIAL.NEB IH SCH (20:56)
[2020-09-21] MEDS ORDERED: BUDESONIDE 0.5 MG/2 ML VIAL.NEB IH SCH (21:00)
[2020-09-21] MEDS ORDERED: INSULIN GLARGINE,HUM.REC.ANLOG 100 UNITS/ML VIAL SC SCH (21:00)
[2020-09-21] MEDS ORDERED: FORMOTEROL FUMARATE 20 MCG/2 ML VIAL IH SCH (21:00)
[2020-09-21] MEDS: FERROUS SULFATE 325 MG TABLET PO SCH (22:04)
[2020-09-21] MEDS: SIMVASTATIN 20 MG TABLET PO SCH (22:04)
[2020-09-21] MEDS: SUCRALFATE 1 G/10 ML UDC PO SCH (22:04)
[2020-09-21] MEDS: INSULIN GLARGINE,HUM.REC.ANLOG 100 UNITS/ML VIAL SC SCH (22:04)
[2020-09-21] MEDS: SERTRALINE HCL 50 MG TABLET PO SCH (22:04)
[2020-09-21] MEDS ORDERED: INSULIN LISPRO 100 UNITS/ML VIAL SC ONE (22:26)
[2020-09-22] MEDS: ALBUTEROL SULFATE/IPRATROPIUM 3 ML NEBU IH SCH ×4 (00:03→18:07)
[2020-09-22] MEDS: BUDESONIDE 0.5 MG/2 ML VIAL.NEB IH SCH ×2 (06:02→18:08)
[2020-09-22 06:38] LABS: Hematocrit 30.2 % (37.0-47.0); Hemoglobin 9.4 gm/dL (12.5-16.0); Mean Cell Volume 89.6 fl (78-100); Mean Corpuscular Hemoglobin 27.9 pg (27-31); Mean Corpuscular Hgb Conc 31.1 g/dl (32-36); Mean Platelet Volume 9.2 fl (8-12.5); Neutrophil # 5.5 K/mm3 (1.3-6.0); Neutrophil % 74.7 % (42-75.0); Platelet Count 202 K/mm3 (150-450); Red Blood Count 3.37 M/mm3 (4.2-5.4); Red Cell Distribution Width 15.2 % (11.5-14.0); White Blood Count 7.4 K/mm3 (4.0-10.5)
[2020-09-22 06:48] LABS: Albumin * 3.4 gm/dl (3.4-5.0); Anion Gap 7.1 mmol/L (6.8-13.8); BUN/Creatinine Ratio 21.1 (9.0-21.6); Bilirubin, Total 0.5 mg/dL (0.0-1.1); Ca. Corrected For Albumin 9.7 mg/dL (8.4-10.2); Calcium * 9.5 mg/dL (7.9-10.9); Carbon Dioxide 32.7 mmol/L (24-32.6); Potassium 4.8 mmol/L (3.4-4.6); Total Protein 6.4 gm/dL (6.2-8.2)
[2020-09-22] MEDS: SUCRALFATE 1 G/10 ML UDC PO SCH ×4 (06:54→20:57)
[2020-09-22] MEDS: LEVOTHYROXINE SODIUM 25 MCG TABLET PO SCH (07:01)
[2020-09-22] MEDS: PANTOPRAZOLE SODIUM 40 MG TABLET.EC PO SCH (07:01)
[2020-09-22] MEDS: INSULIN LISPRO 100 UNITS/ML VIAL SC SCH ×3 (08:03→16:38)
[2020-09-22] MEDS ORDERED: LOSARTAN POTASSIUM 50 MG TABLET PO SCH (09:00)
[2020-09-22] MEDS ORDERED: AZITHROMYCIN 250 MG TABLET PO SCH (09:00)
[2020-09-22] MEDS ORDERED: SPIRONOLACTONE 25 MG TABLET PO SCH (09:00)
[2020-09-22] MEDS ORDERED: FLU VACC QS2020-21(6MOS UP)/PF 60 MCG/0.5 ML SYRINGE IM ONE (10:00)
[2020-09-22] MEDS: LEVOFLOXACIN 500 MG TABLET PO SCH (10:20)
[2020-09-22] MEDS: amLODIPine BESYLATE 10 MG TABLET PO SCH (10:20)
[2020-09-22] MEDS: GLIMEPIRIDE 2 MG TABLET PO SCH (10:20)
[2020-09-22] MEDS: predniSONE 20 MG TABLET PO SCH (10:21)
[2020-09-22] MEDS: SERTRALINE HCL 50 MG TABLET PO SCH ×2 (10:21→21:16)
[2020-09-22] MEDS: FERROUS SULFATE 325 MG TABLET PO SCH ×2 (10:22→20:57)
[2020-09-22] MEDS: FUROSEMIDE 40 MG TABLET PO SCH (10:22)
[2020-09-22] MEDS: CYANOCOBALAMIN 1,000 MCG TABLET PO SCH (10:22)
[2020-09-22] MEDS: ENOXAPARIN SODIUM 40 MG/0.4 ML SYRG SC SCH (11:29)
[2020-09-22] MEDS: MORPHINE SULFATE 15 MG TABLET.SA PO SCH (13:19)
[2020-09-22] MEDS: LOSARTAN POTASSIUM 50 MG TABLET PO SCH (13:19)
[2020-09-22] MEDS: FORMOTEROL FUMARATE 20 MCG/2 ML VIAL IH SCH ×2 (13:23→18:07)
--- NOTE | 2020-09-22 17:40 | PN ---
Subjective - Date and Time Seen Date: 09/22/20 Time: 09:12 Subjective Narrative: She continues to complain of shortness of breath with exertion. Objective - Review of Systems Generalized/Overall Review: Denies: Fever Respiratory: Reports: Shortness of Breath Cardiac: Denies: Chest Pain Abdominal: Denies: Abdominal Pain Misc: All systems neg except as marked - Vitals Vitals: Last Vital Signs Temp 36.7 C 09/22/20 14:13 Pulse 83 09/22/20 16:55 Resp 16 09/22/20 14:13 BP 130/54 09/22/20 14:13 Pulse Ox 95 09/22/20 14:13 - Abnormal Lab Findings Abnormal Lab Findings: Abnormal Lab Results 09/21/20 09/22/20 09/22/20 Range/Units 18:21 06:31 06:31 RBC 3.37 L (4.2-5.4) M/mm3 Hgb 9.4 L (12.5-16.0) gm/dL Hct 30.2 L (37.0-47.0) % MCHC 31.1 L (32-36) g/dl RDW 15.2 H (11.5-14.0) % Immature Gran % (Auto) 1.10 H (0.001-0.429) % Immature Gran # (Auto) 0.08 H (0.000-0.0310) K/mm3 Lymphocytes % 15.7 L (20-51) % Lymphocytes # 1.16 L (1.5-3.5) k/mm3 Potassium 4.8 H (3.4-4.6) mmol/L Carbon Dioxide 32.7 H (24-32.6) mmol/L BUN 28 H (3-23) mg/dL Est GFR (Non-Af Amer) 41 L (60-130) mL/min Random Glucose 138 H D (70-110) mg/dL Lactic Acid, Venous 3.6 H* (0.4-2.0) mmol/L - Exam Constitutional: Present: Alert, Cooperative, Well developed, Well nourished, No distress, Elderly ENT Exam: Present: hearing grossly normal Neck: Present: non-tender, supple. Absent: lymphadenopathy (R), lymphadenopathy (L) Respiratory: Present: no respiratory distress, no accessory muscle use, rhonchi - On expiration. Absent: crackles, wheezing Cardiovascular/Chest: Present: normal peripheral pulses, regular rate, rhythm, no edema, no murmur Abdomen: Present: Normal bowel sounds, soft, nontender Extremity: Present: no pedal edema Skin Exam: Present: normal color, warm/dry Neurologic: Present: alert, normal mood/affect Appearance: Present: appropriate appearance, appropriate insight Eye contact: Present: cooperative Thoughts: Present: normal thought pattern, normal mood /affect Assessment/Plan Plan Narrative: 74-year-old female with a past medical history of COPD, tobacco use, non-small cell carcinoma of the left upper lung lobe, lupus, anxiety, chronic pain, depression, diabetes mellitus type 2, fibromyalgia, GERD, hepatocellular carcinoma, hyperlipidemia, hypothyroidism, MD presents from home with complaints of shortness of breath for the past 3 days that is progressively worsening. In the ER she was found to be tachypneic with a heart rate of 28. O2 saturations dropped into the 80s with ambulation. Chest x-ray showed no acute cardiopulmonary disease, blood work was positive for BNP of 4157, last BNP was 1120 in January 2020. In the ER she received a dose of 40 mg of Lasix, methylprednisolone 80 mg, albuterol nebulizer. She is being admitted for COPD exacerbation and possible new onset CHF. Plan #1 continue with duo nebs, prednisone 40 mg daily day 2 #2 Holding Lasix due to kidney function #3 monitor CBC and CMP #4 resume home medications for comorbidities #5 oxygen supplementation as needed, wean off of oxygen, goal is to keep O2 sat greater than 90% #6 strict I's and O's #7 start Levaquin 500 mg daily day 1 - Problems/Diagnosis (1) COPD exacerbation Problem: Acute (2) CHF (congestive heart failure) Problem: Acute (3) GERD (gastroesophageal reflux disease) Problem: Chronic (4) PMR (polymyalgia rheumatica) Problem: Chronic (5) Hyperlipidemia Problem: Chronic Qualifiers: (6) Lupus Problem: Chronic Qualifiers: (7) Lung cancer Problem: Chronic Qualifiers: (8) Hypothyroidism Problem: Chronic Qualifiers: (9) Hepatocellular carcinoma Problem: Chronic (10) Fibromyalgia Problem: Chronic (11) diabetes type II Problem: Chronic (12) Steroid-dependent chronic obstructive pulmonary disease Problem: Acute
[2020-09-22] MEDS: INSULIN GLARGINE,HUM.REC.ANLOG 100 UNITS/ML VIAL SC SCH (20:59)
[2020-09-22] MEDS: SIMVASTATIN 20 MG TABLET PO SCH (21:16)
[2020-09-23] MEDS: ALBUTEROL SULFATE/IPRATROPIUM 3 ML NEBU IH SCH ×2 (00:04→06:04)
[2020-09-23] MEDS: MORPHINE SULFATE 15 MG TABLET.SA PO SCH ×2 (00:21→11:23)
[2020-09-23] MEDS: BUDESONIDE 0.5 MG/2 ML VIAL.NEB IH SCH (06:04)
[2020-09-23] MEDS: FORMOTEROL FUMARATE 20 MCG/2 ML VIAL IH SCH (06:04)
[2020-09-23 06:29] LABS: Hemoglobin 9.9 gm/dL (12.5-16.0); Mean Cell Volume 89.4 fl (78-100); Mean Corpuscular Hemoglobin 27.7 pg (27-31); Mean Corpuscular Hgb Conc 30.9 g/dl (32-36); Mean Platelet Volume 8.6 fl (8-12.5); Neutrophil # 5.3 K/mm3 (1.3-6.0); Neutrophil % 69.1 % (42-75.0); Platelet Count 207 K/mm3 (150-450); Red Blood Count 3.58 M/mm3 (4.2-5.4); Red Cell Distribution Width 15.1 % (11.5-14.0); White Blood Count 7.6 K/mm3 (4.0-10.5)
[2020-09-23] MEDS: LEVOTHYROXINE SODIUM 25 MCG TABLET PO SCH (06:42)
[2020-09-23] MEDS: PANTOPRAZOLE SODIUM 40 MG TABLET.EC PO SCH (06:42)
[2020-09-23] MEDS: SUCRALFATE 1 G/10 ML UDC PO SCH ×2 (06:43→11:21)
[2020-09-23] MEDS: INSULIN LISPRO 100 UNITS/ML VIAL SC SCH ×2 (06:44→12:11)
[2020-09-23 06:47] LABS: Albumin * 3.6 gm/dl (3.4-5.0); Anion Gap 11.5 mmol/L (6.8-13.8); Bilirubin, Total 0.4 mg/dL (0.0-1.1); Ca. Corrected For Albumin 9.9 mg/dL (8.4-10.2); Calcium * 9.9 mg/dL (7.9-10.9); Carbon Dioxide 31.2 mmol/L (24-32.6); Potassium 3.7 mmol/L (3.4-4.6); Total Protein 6.8 gm/dL (6.2-8.2)
[2020-09-23] MEDS: GLIMEPIRIDE 2 MG TABLET PO SCH (09:25)
[2020-09-23] MEDS: LOSARTAN POTASSIUM 50 MG TABLET PO SCH (09:25)
[2020-09-23] MEDS: FERROUS SULFATE 325 MG TABLET PO SCH (09:25)
[2020-09-23] MEDS: predniSONE 20 MG TABLET PO SCH (09:26)
[2020-09-23] MEDS: FUROSEMIDE 40 MG TABLET PO SCH (09:27)
[2020-09-23] MEDS: amLODIPine BESYLATE 10 MG TABLET PO SCH (09:27)
[2020-09-23] MEDS: SERTRALINE HCL 50 MG TABLET PO SCH (09:28)
[2020-09-23] MEDS: CYANOCOBALAMIN 1,000 MCG TABLET PO SCH (09:32)
[2020-09-23] MEDS: ENOXAPARIN SODIUM 40 MG/0.4 ML SYRG SC SCH (09:33)
[2020-09-23] MEDS: LEVOFLOXACIN 500 MG TABLET PO SCH (11:20)
--- NOTE | 2020-09-23 11:40 | DS ---
Date of Discharge:: 09/23/20 Hospital Course: 74-year-old female admitted for COPD exacerbation and CHF was evaluated at bedside and was found to be afebrile and in no acute distress. Patient has shown significant clinical improvement since arriving to the hospital. This morning she reports finally being able to breathe and says her shortness of breath has resolved. The patient expresses a desire to go home and after evaluating her thoroughly decision to discharge her home was made. Will discharge patient with additional days of p.o. antibiotics and p.o. steroids to continue treating the COPD, patient was instructed to resume her previous oxygen and to follow-up with her PCP in 5 days. We will also order follow-up CMP to be repeated for reevaluation of her renal function given the evidence of an acute kidney injury on intrahospital labs. Procedures Performed: none Results and Findings: Pending Mircobiology Results 09/21/20 16:32 Blood Blood Culture - Preliminary NO GROWTH 24 HOURS 09/21/20 15:51 Blood Blood Culture - Preliminary NO GROWTH 24 HOURS Lab Pending Results 09/21/20 15:30: SARS-CoV-2 (PCR) Not detected 09/21/20 15:51: WBC 8.7, RBC 3.54 L, Hgb 9.6 L, Hct 31.8 L, MCV 89.8, MCH 27.1, MCHC 30.2 L, RDW 15.3 H, Plt Count 206, MPV 9.2, Immature Gran % (Auto) 1.00 H, Immature Gran # (Auto) 0.09 H, Neutrophils % 90.9 H, Lymphocytes % 5.2 L, Monocytes % 2.2, Eosinophils % 0.1, Basophils % 0.6, Nucleated RBC % 0.0, Neutrophils # 7.9 H, Lymphocytes # 0.45 L, Monocytes # 0.2, Eosinophils # 0.0, Absolute Basophils 0.1 09/21/20 15:51: Sodium 136, Plasma Sodium 138, Potassium 5.4 H D, Chloride 102, Carbon Dioxide 26.7, Anion Gap 12.7, BUN 23, Creatinine 1.22, Est GFR (Non-Af Am er) 46 L, BUN/Creatinine Ratio 18.9, Random Glucose 247 H, Calcium 9.0, Calcium Adj for Albumin 9.1, Total Bilirubin 0.5, AST 26, ALT 51, Alkaline Phosphatase 83, Troponin I 0.065, B-Natriuretic Peptide 4157 H, Total Protein 6.7, Albumin 3.5 09/21/20 15:51: Lactic Acid, Venous 2.6 H* 09/21/20 18:21: Lactic Acid, Venous 3.6 H* 09/22/20 06:31: WBC 7.4, RBC 3.37 L, Hgb 9.4 L, Hct 30.2 L, MCV 89.6, MCH 27.9, MCHC 31.1 L, RDW 15.2 H, Plt Count 202, MPV 9.2, Immature Gran % (Auto) 1.10 H, Immature Gran # (Auto) 0.08 H, Neutrophils % 74.7, Lymphocytes % 15.7 L, Monocytes % 7.5, Eosinophils % 0.3, Basophils % 0.7, Nucleated RBC % 0.0, Neutrophils # 5.5, Lymphocytes # 1.16 L, Monocytes # 0.6, Eosinophils # 0.0, Absolute Basophils 0.1 09/22/20 06:31: Sodium 139, Plasma Sodium 140, Potassium 4.8 H, Chloride 104, Carbon Dioxide 32.7 H, Anion Gap 7.1, BUN 28 H, Creatinine 1.33, Est GFR (Non-Af Amer) 41 L, BUN/Creatinine Ratio 21.1, Random Glucose 138 H D, Calcium 9.5, Calcium Adj for Albumin 9.7, Total Bilirubin 0.5, AST 16, ALT 42, Alkaline Phosphatase 75, Total Protein 6.4, Albumin 3.4 09/23/20 06:20: WBC 7.6, RBC 3.58 L, Hgb 9.9 L, Hct 32.0 L, MCV 89.4, MCH 27.7, MCHC 30.9 L, RDW 15.1 H, Plt Count 207, MPV 8.6, Immature Gran % (Auto) 1.30 H, Immature Gran # (Auto) 0.10 H, Neutrophils % 69.1, Lymphocytes % 19.3 L, Monocytes % 8.3, Eosinophils % 1.3, Basophils % 0.7, Nucleated RBC % 0.0, Neutrophils # 5.3, Lymphocytes # 1.47 L, Monocytes # 0.6, Eosinophils # 0.1, Absolute Basophils 0.1 09/23/20 06:20: Sodium 139, Plasma Sodium 139, Potassium 3.7 D, Chloride 100, Carbon Dioxide 31.2, Anion Gap 11.5, BUN 36 H, Creatinine 1.44 H, Est GFR (Non- Af Amer) 38 L, BUN/Creatinine Ratio 25.0 H, Random Glucose 92 D, Calcium 9.9, Calcium Adj for Albumin 9.9, Total Bilirubin 0.4, AST 15, ALT 41, Alkaline Phosphatase 66, Total Protein 6.8, Albumin 3.6 Disposition: Home self-care Condition: Fair Face to Face Encounter completed per [facility] Guidelines: No Discharge Activity: Activity as tolerated Discharge Diet: Consistent carbs Additional Patient Instructions (free text): Schedule appointment with pulmonology at [facility] at discharge. TCM appointment at discharge- PCP Complete Home Medications List: Complete Home Medication List: Ascorbic Acid [Vitamin C] 100 mg PO DAILY 05/16/17 Cholecalciferol (Vitamin D3) [Vitamin D3] 2,000 unit PO DAILY 05/16/17 HYDROcodone/ACETAMINOPHEN [[place] 5-325] 1 tab PO Q4H PRN 05/16/17 blood-glucose meter See Dose Instructions .ROUTE .MEDSUPPLY #1 ea 06/10/18 compressor, for nebulizer See Dose Instructions .ROUTE .MEDSUPPLY #1 ea 06/10/18 cyanocobalamin (vitamin B-12) 1,000 mcg tablet 1,000 mcg PO DAILY 06/10/18 lancets 30 gauge See Dose Instructions .ROUTE .MEDSUPPLY #25 ea 06/10/18 morphine 15 mg tablet,extended release 15 mg PO Q12H tab 06/16/18 spironolactone 25 mg tablet 25 mg PO DAILY #90 tab 05/26/19 arformoterol 15 mcg/2 mL solution for nebulization 15 mcg IH BID #120 ml 07/28/19 budesonide 0.5 mg/2 mL suspension for nebulization 0.5 mg IH BID #120 ml 07/28/19 Albuterol Sulfate/Ipratropium [Duoneb 2.5-0.5MG/3ML Soln] 3 ml INHALATION Q4HRT #120 nebu 01/31/20 ferrous sulfate 325 mg (65 mg iron) tablet 325 mg PO BID #60 tab 02/01/20 pen needle, diabetic 31 gauge x 3/16" See Rx Instructions .ROUTE .MEDSUPPLY #100 ea 02/10/20 sucralfate 100 mg/mL oral suspension 1 g PO ACHS #60 gm 02/10/20 blood sugar diagnostic See Rx Instructions .ROUTE .MEDSUPPLY #100 ea 02/16/20 albuterol sulfate 90 mcg/actuation aerosol inhaler 2 inh IH Q4H PRN #8.5 g 03/15/20 azithromycin 250 mg tablet 250 mg PO DAILY #90 tab 05/01/20 metformin 1,000 mg tablet 1,000 mg PO BID #180 tab 05/03/20 furosemide 40 mg tablet 40 mg PO DAILY #90 tab 06/14/20 glimepiride 1 mg tablet 1 mg PO DAILY #90 tab 06/14/20 levothyroxine 25 mcg tablet 25 mcg PO DAILY #90 tab 06/14/20 Durable Medical Equipment See Rx Instructions .ROUTE .MEDSUPPLY #1 ea 07/06/20 fluticasone propionate 50 mcg/actuation nasal spray,suspension 2 spray TERRI BID #16 g 07/06/20 losartan 50 mg tablet 50 mg PO DAILY #90 tab 07/06/20 insulin glargine 100 unit/mL (3 mL) subcutaneous pen 20 unit SUBCUT HS #15 ml 07/07/20 omeprazole 40 mg capsule,delayed release 40 mg PO DAILY #90 cap 07/20/20 ondansetron 4 mg disintegrating tablet 8 mg TRANSLINGUAL BID PRN #90 tab 07/20/20 sertraline 50 mg tablet 50 mg PO BID #180 tab 07/20/20 simvastatin 20 mg tablet 20 mg PO HS #90 tab 07/20/20 prednisone 20 mg tablet 20 mg PO DAILY #30 tab 08/24/20 Forms: Patient Portal Registration
[2020-09-23] MEDS ORDERED: ALBUTEROL SULFATE/IPRATROPIUM 3 ML NEBU IH SCH (13:00)
[2020-09-23 13:21] VITALS: BP 148/65
[2020-09-23] MEDS ORDERED: SUCRALFATE 1 G/10 ML UDC PO SCH (17:00)
[2020-09-23] MEDS ORDERED: SERTRALINE HCL 50 MG TABLET PO SCH (21:00)
[2020-09-23] MEDS ORDERED: FERROUS SULFATE 325 MG TABLET PO SCH (21:00)
[2020-09-23] MEDS ORDERED: SIMVASTATIN 20 MG TABLET PO SCH (21:00)
[2020-09-24] MEDS ORDERED: PANTOPRAZOLE SODIUM 40 MG TABLET.EC PO SCH (07:00)
[2020-09-24] MEDS ORDERED: LEVOTHYROXINE SODIUM 25 MCG TABLET PO SCH (07:00)
[2020-09-24] MEDS ORDERED: FUROSEMIDE 40 MG TABLET PO SCH (09:00)
[2020-09-24] MEDS ORDERED: predniSONE 20 MG TABLET PO SCH (09:00)
[2020-09-24] MEDS ORDERED: GLIMEPIRIDE 2 MG TABLET PO SCH (09:00)
[2020-09-24] MEDS ORDERED: CYANOCOBALAMIN 1,000 MCG TABLET PO SCH (09:00)
== END 2020-09-23 13:40 | disposition home or self-care (01) | DRG 191 ==
LOC: ER 15:05 → MS 15:05
PROVIDERS: ADMIT Internal Medicine; ATTEND Internal Medicine
DX: K21.9 Gastro-esophageal reflux disease without esophagitis; J44.1 Chronic obstructive pulmonary disease with (acute) exacerbation; N17.9 Acute kidney failure, unspecified; Z85.118 Personal history of other malignant neoplasm of bronchus and lung; M79.7 Fibromyalgia; M32.9 Systemic lupus erythematosus, unspecified; Z72.0 Tobacco use; I50.9 Heart failure, unspecified; E03.9 Hypothyroidism, unspecified; R09.02 Hypoxemia; E78.5 Hyperlipidemia, unspecified; M35.3 Polymyalgia rheumatica; E11.9 Type 2 diabetes mellitus without complications; Z23 Encounter for immunization

== ENCOUNTER 2021-04-23 07:17 | Inpatient (IN) ==
[2021-04-23] MEDS ORDERED: ALBUTEROL SULFATE/IPRATROPIUM 3 ML NEBU IH ONE (07:26)
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
[2021-04-23] MEDS ORDERED: HYDROmorphone HCL 1 MG/ML DISP.SYRIN IV ONE ×3 (07:58→12:48)
[2021-04-23 08:08] LABS: Hematocrit 25.6 % (37.0-47.0); Mean Cell Volume 99.2 fl (78-100); Mean Corpuscular Hemoglobin 29.8 pg (27-31); Mean Corpuscular Hgb Conc 30.1 g/dl (32-36); Mean Platelet Volume 9.3 fl (8-12.5); Neutrophil # 6.7 K/mm3 (1.3-6.0); Neutrophil % 88.4 % (42-75.0); Platelet Count 148 K/mm3 (150-450); Red Blood Count 2.58 M/mm3 (4.2-5.4); Red Cell Distribution Width 17.4 % (11.5-14.0); White Blood Count 7.6 K/mm3 (4.0-10.5)
[2021-04-23 08:11] LABS: Hemoglobin 7.7 gm/dL (12.5-16.0)
[2021-04-23 08:34] LABS: Albumin * 3.3 gm/dl (3.4-5.0); Anion Gap 15.6 mmol/L (6.8-13.8); Bilirubin, Total 0.8 mg/dL (0.0-1.1); Ca. Corrected For Albumin 8.4 mg/dL (8.4-10.2); Calcium * 8.2 mg/dL (7.9-10.9); Carbon Dioxide 25.3 mmol/L (24-32.6); Potassium 4.9 mmol/L (3.4-4.6); Total Protein 5.6 gm/dL (6.2-8.2); Troponin I 0.041 ng/mL (0.00-0.10)
[2021-04-23] MEDS ORDERED: FUROSEMIDE 10 MG/ML VIAL IV ONE (08:48)
[2021-04-23 09:28] LABS: Urine Appearance Turbid (CLEAR); Urine Bacteria 1+; Urine Bilirubin 3 mg/dl (NEGATIVE); Urine Blood 250 /ul (NEGATIVE); Urine Color Red; Urine Ketone 5 mg/dL (NEGATIVE); Urine Nitrite Positive (NEGATIVE); Urine Protein >=300 mg/dL (NEGATIVE); Urine RBC >50 /hpf (0-5); Urine Urobilinogen Normal (NORMAL); Urine pH 6.5 pH (5.0-7.0)
[2021-04-23 09:36] LABS: Prothrombin Time (Patient) 12.1 Seconds (9.1-10.7)
[2021-04-23 09:37] LABS: INR 1.17 INR (0.92-1.08); Partial Thrombolplastin Time 26.6 Seconds (24-32)
[2021-04-23] MEDS ORDERED: LEVOFLOXACIN IN DEXTROSE 5 % 500 MG/100 ML BAG IV ONE (09:38)
[2021-04-23] MEDS ORDERED: ONDANSETRON 4 MG TAB.RAPDIS PO PRN (15:24)
[2021-04-23] MEDS ORDERED: ALBUTEROL SULFATE 2.5 MG/3 ML VIAL.NEB IH PRN (15:24)
[2021-04-23] MEDS: MORPHINE SULFATE 2 MG/ML DISP.SYRIN IV PRN ×2 (15:42→20:29)
[2021-04-23] MEDS: amLODIPine BESYLATE 10 MG TABLET PO SCH (16:33)
[2021-04-23] MEDS: ALBUTEROL SULFATE/IPRATROPIUM 3 ML NEBU IH SCH ×4 (16:55→22:00)
[2021-04-23] MEDS: BUDESONIDE 0.5 MG/2 ML VIAL.NEB IH SCH ×2 (17:00→18:11)
[2021-04-23] MEDS ORDERED: PROCHLORPERAZINE MALEATE 10 MG TABLET PO PRN (17:41)
[2021-04-23] MEDS: SUCRALFATE 1 G/10 ML UDC PO SCH ×2 (17:45→20:33)
[2021-04-23] MEDS: INSULIN LISPRO 100 UNITS/ML VIAL SC SCH (17:46)
[2021-04-23 18:03] LABS: Hemoglobin 8.6 gm/dL (12.5-16.0); Mean Cell Volume 95.9 fl (78-100); Mean Corpuscular Hemoglobin 29.5 pg (27-31); Mean Corpuscular Hgb Conc 30.7 g/dl (32-36); Mean Platelet Volume 9.2 fl (8-12.5); Neutrophil # 4.8 K/mm3 (1.3-6.0); Neutrophil % 90.4 % (42-75.0); Platelet Count 124 K/mm3 (150-450); Red Blood Count 2.92 M/mm3 (4.2-5.4); Red Cell Distribution Width 17.5 % (11.5-14.0); White Blood Count 5.3 K/mm3 (4.0-10.5)
--- NOTE | 2021-04-23 18:46 | HP ---
Chief Complaint - Chief Complaint Date of Service: 04/23/21 Time of Service: 18:23 Chief Complaint: I fell and broke my left hip. History of Present Illness: 75-year-old female with past medical history of CHF, CAD with old CT, CKD 3, bladder cancer, hepatocellular carcinoma, lung cancer, cigarette smoker, obesity, hypothyroidism, anxiety disorder, GERD, fibromyalgia, lupus, and COPD on supplemental oxygen was brought to the ER by EMS for left hip pain secondary to a fall that occurred early this morning in the patient's home. Patient lives alone and she reports she got up around 1 AM to go to the bathroom and grabbed her cane and went to turn around and lost her balance, she reports falling onto her left side. The patient had immediate pain in her left hip but with a lot of effort stood up only to fall again, the patient stood up again and fell 1/3 time this time in a recliner. During this whole process the patient's nasal cannula came off and fell away from her so she was without her oxygen for several hours. The patient desatted and became cyanotic. Several hours later she was discovered by her son who found his mother bluish and without her oxygen. He immediately called EMS who put the patient on a BiPAP machine and transported her to the ER. Once in the ER the patient was found to have a broken left hip, respiratory acidosis requiring BiPAP machine until her oxygen saturation improved. She was then switched to nasal cannula which she has been tolerated without any issues. Orthopedic surgery was consulted and they requested medical clearance by the medical team before taking her to surgery to repair the hip. However after reviewing the patient's record it is unlikely the patient will be a candidate for such an extensive surgery. Work-up in the ER revealed significant anemia with a hemoglobin of 7.7 due to ongoing hematuria secondary to bladder cancer and the patient had a BNP above 5000 which is a worsening of her CHF. She also has chronic renal failure that would benefit from IV hyd ration however given her CHF IV fluids are contraindicated at the moment. The patient was treated with IV furosemide to diurese her from her decompensated CHF however she continues to show shortness of breath and has crackles on auscultation. Given these findings I will not clear the patient for surgery. Instead I will repeat a CBC to reevaluate hemoglobin levels and ABG to reevaluate blood gases. A conversation was held with her son who is a power of claim attorney and he is in agreement that his mother should not have surgery due to her multiple comorbidities and her fragile state. Hospice care at home was proposed and himself and his mother are in agreement with the plan so consult for hospice care was placed. We will keep the patient on administrative medical director and continue to monitor throughout the night. Medical History (Last Reviewed 04/23/21 @ 14:34 by Teresa Christie RN) Wears glasses (Chronic) Wears dentures (Chronic) upper and bottom Myocardial infarction (Chronic) Patient reports two years ago in 2017 stress test was done and showed evidence of CT in past, they reported not knowing when. Lupus (Chronic) Lung cancer (Chronic) Onset Date: ~2017 non-small cell carcinoma, left upper lobe stage 2 Lumbar spondylosis (Chronic) IBS (irritable bowel syndrome) (Chronic) Hypothyroidism (Chronic) hyperlipidemia (Chronic) Hepatocellular carcinoma (Chronic) GERD (gastroesophageal reflux disease) (Chronic) Fibromyalgia (Chronic) diabetes type II (Chronic) A1c is 7.1 so I will stop glimepiride Depression (Chronic) COPD (chronic obstructive pulmonary disease) (Chronic) Onset Date: ~2015 Continue with DuoNeb every 2-4 hour as needed She was given instruction on how to apply for extra help at Medicare part D To call back if no better Advised to stop smoking Continue all current medication Anxiety (Chronic) Current tobacco use 3 cigs per day Full dentures No history of alcohol use Weight loss, abnormal 20 lbs Arthritis Cataract, bilateral Chronic bronchitis Chronic pain Chronic, continuous use of opioids Macular hole of left eye Onset Date: ~07/2016 Myofascial pain Paralyzed vocal cords Onset Date: ~03/02/18 paralyzed left vocal chord, no sign of malignancy Postlaminectomy syndrome of lumbar region Postlaminectomy syndrome, cervical Primary localized osteoarthrosis of lower leg LEFT Risk taking behavior Surgical History: Surgical History (Last Reviewed 04/23/21 @ 14:35 by Teresa Christie RN) H/O breast biopsy H/O dilation and curettage multiple H/O esophagogastroduodenoscopy Onset Date: 07/04/16 07/04/16 Peasley-clotest negative. H/O neck surgery Onset Date: ~2005 Dr. Wagoner H/O: hysterectomy Onset Date: ~1975 History of appendectomy Onset Date: ~1957 History of bronchoscopy Onset Date: ~201711/19/2017- Giuliana; left upper lobe endobronchial biopsies 12/12/17- Dr. Jaydon VERMA History of temporal artery biopsy Onset Date: 12/24/18 [id number] consistent w/treated temporal arteritis. History of tonsillectomy Onset Date: ~1949 Hx of colonoscopy Onset Date: 07/04/16 10/12/07 Mikel-slightly redundant colon, moderate sigmoid diverticulosis. 07/04/16 Peasley-normal. Previous back surgery Onset Date: ~1985 S/P epidural steroid injection [facility] - Porfirio Ruiz, [employer] cervical epidural steroid injection at C5-6- has had multiple Wrist fracture, left Onset Date: ~1998 history of arthroscopy of wrist Onset Date: 07/29/01 Dr Owen-w/debridement of triangular fibrocartilage and joint left wrist indirect laryngoscopy with vocal chord injection Onset Date: 03/02/18 Jimbo; left vocal chord injection- prolaryn foam injection left pars plana vitrectomy Onset Date: 02/21/16 ILM peel 14% C3F8 gas OS for chronic macular hole mediastinoscopy Onset Date: 12/12/17 Dr. Jaydon VERMA- benign lymphoid tissue from right and left paratracheal lymph nodes, subcarinal lymph node sampling yielded no lymphoid tissue microwave ablation of mass of liver stress test Onset Date: ~11/24/17 normal Family History: Family History (Last Reviewed 04/23/21 @ 14:35 by Teresa Christie RN) Brother Diabetes Cancer 1 brother w/prostate ca, 1 brother w/lung ca, 1 brother w/pancreatic and liver ca Father , age 70's-CT Heart disease Alcoholic Myocardial infarction Emphysema lung Mother , age 81-diabetes Heart disease Heart failure Diabetes Cardiac dysrhythmia Sister Ovarian cancer 1 sister Diabetes Breast cancer 1 sister COPD (chronic obstructive pulmonary disease) 1 sister Sister COPD (chronic obstructive pulmonary disease) Heart disease Social History: (Last Reviewed 04/23/21 @ 14:36 by Teresa Christie RN) Social History: Marital status: / lives independently: Yes household members: none number of children: 4 current occupational status: retired Highest level of school completed/degree received: high school graduate Service: No Tobacco: Smoking Status: Former smoker tobacco type: cigarettes Smoking cigarettes per day: 0 Smoking packs per day: 0 Years smoked: 51 Smoking pack-years: 0.00 Smoking End Date: 07/24/19 Alcohol: alcohol intake: never Substance Use: substance use type: does not use Dietary Habits: caffeine: Yes Type: coffee Personal Safety: victim of physical abuse: No victim of emotional abuse: No Peds Patient Hx - Developmental: No Pertinent Hx Peds Patient Hx - Medical: No Pertinent Hx Peds Patient Hx - Cardiac/Respiratory: No Pertinent Hx Peds Patient Hx - Surgical: No Surgical History Patient History - Cancer: No Hx of Cancer Review Of Systems (GEN) - Review of Systems Generalized/Overall Review: Present: Weakness EENTM: Present: No Symptoms Reported Respiratory: Present: Shortness of Breath Cardiac: Present: No Symptoms Reported Abdominal: Present: No Symptoms Reported Genitourinary: Present: No Symptoms Reported Musculoskeletal: Present: Joint Pain - Left hip pain Neurological: Present: No Symptoms Reported Skin: Present: No Symptoms Reported Endocrine: Present: No Symptoms Reported Immunizations: IMMUNIZATION HX Immunizations Up to Date Yes History of Influenza Vaccine Yes Hx Pneumococcal Vaccination No Allergies/Adverse Reactions: Allergies Allergy/AdvReac Type Severity Reaction Status Date / Time Iodinated Contrast Media Allergy Severe Anaphylaxis Verified 04/23/21 14:36 [Iodinated Contrast Media - IV Dye] iodine Allergy Severe Anaphylaxis Verified 04/23/21 14:36 Fish Containing Products Allergy Intermediate HIVES, Verified 04/23/21 14:36 SHAKING, "OUT OF IT COMPLETELY" amoxicillin trihydrate Allergy Mild Hives Verified 04/23/21 14:36 [From Amoxil] Sulfa (Sulfonamide Allergy Mild numbness Verified 04/23/21 14:36 Antibiotics) to face codeine AdvReac Mild N/V Verified 04/23/21 14:36 Home Medications: HOME MEDICATIONS Ascorbic Acid [Vitamin C] 100 mg PO DAILY 05/16/17 [Last Taken 12/24/18] Cholecalciferol (Vitamin D3) [Vitamin D3] 2,000 unit PO DAILY 05/16/17 [Last Taken 12/24/18] blood-glucose meter See Dose Instructions .ROUTE .MEDSUPPLY #1 ea 06/10/18 [Last Taken 12/24/18] compressor, for nebulizer See Dose Instructions .ROUTE .MEDSUPPLY #1 ea 06/10/18 [Last Taken Unknown] cyanocobalamin (vitamin B-12) 1,000 mcg tablet 1,000 mcg PO DAILY 06/10/18 [Last Taken 12/24/18] lancets 30 gauge See Dose Instructions .ROUTE .MEDSUPPLY #25 ea 06/10/18 [Last Taken 12/24/18] morphine 15 mg tablet,extended release 30 mg PO Q12H tab 06/16/18 [Last Taken 12/24/18] budesonide 0.5 mg/2 mL suspension for nebulization 0.5 mg IH BID #120 ml 07/28/19 [Last Taken Unknown] Albuterol Sulfate/Ipratropium [Duoneb 2.5-0.5MG/3ML Soln] 3 ml INHALATION Q4HRT #120 nebu 01/31/20 [Last Taken Unknown] pen needle, diabetic 31 gauge x /16" See Rx Instructions .ROUTE .MEDSUPPLY #100 ea 02/10/20 [Last Taken Unknown] albuterol sulfate 90 mcg/actuation aerosol inhaler 2 inh IH Q4H PRN #8.5 g 03/15/20 [Last Taken Unknown] Durable Medical Equipment See Rx Instructions .ROUTE .MEDSUPPLY #1 ea 07/06/20 [Last Taken Unknown] fluticasone propionate 50 mcg/actuation nasal spray,suspension 2 spray TERRI BID #16 g 07/06/20 [Last Taken Unknown] Blood Sugar Diagnostic [Contour Test Strip] See Rx Instructions .ROUTE .MEDSUPPLY #100 ea 09/23/20 [Last Taken Unknown] Insulin Glargine,Hum.rec.anlog [Lantus Solostar] 20 unit SUBCUT HS #15 ml 09/23/20 [Last Taken Unknown] Insulin Lispro [Humalog] 0 units SC ACINS vial 09/23/20 [Last Taken Unknown] Levothyroxine Sodium [Synthroid] 25 mcg PO DAILY #90 tab 09/23/20 [Last Taken Unknown] ipratropium 0.5 mg-albuterol 3 mg (2.5 mg base)/3 mL nebulization soln 3 ml IH Q6H PRN #180 ml 09/28/20 [Last Taken Unknown] amlodipine 10 mg tablet 10 mg PO DAILY #90 tab 11/24/20 [Last Taken Unknown] prednisone 20 mg tablet 20 mg PO DAILY #120 tab 01/11/21 [Last Taken Unknown] sertraline 50 mg tablet 50 mg PO BID #180 tab 01/11/21 [Last Taken Unknown] Ciprofloxacin HCl [Cipro] 500 mg PO BID #10 tab 01/22/21 [Last Taken Unknown] HYDROmorphone HCL [Dilaudid] 2 mg PO Q4H PRN #18 tab 01/22/21 [Last Taken Unknown] guaifenesin 1,200 mg tablet, extended release 12 hr 1,200 mg PO BID 01/23/21 [Last Taken Unknown] simvastatin 20 mg tablet 20 mg PO HS #90 tab 01/23/21 [Last Taken Unknown] famciclovir 500 mg tablet 500 mg PO TID #21 tab 01/25/21 [Last Taken Unknown] ondansetron 4 mg disintegrating tablet 8 mg TRANSLINGUAL BID PRN #90 tab 01/25/21 [Last Taken Unknown] ferrous sulfate 325 mg (65 mg iron) tablet 325 mg PO BID #180 tab 02/13/21 [Last Taken Unknown] furosemide 40 mg tablet 80 mg PO DAILY #90 tab 03/02/21 [Last Taken Unknown] flash glucose scanning reader See Rx Instructions .ROUTE .MEDSUPPLY #1 ea 03/13/21 [Last Taken Unknown] flash glucose sensor See Rx Instructions .ROUTE .MEDSUPPLY #1 ea 03/13/21 [Last Taken Unknown] HYDROcodone/ACETAMINOPHEN [Hydrocodon-Acetaminophn 10-325] 1 ea PO BID PRN 04/23/21 [Last Taken Unknown] Prochlorperazine Maleate [Compazine] 10 mg PO QID PRN 04/23/21 [Last Taken Unknown] metFORMIN HCL [Metformin HCl] 1,000 mg PO BID 04/23/21 [Last Taken Unknown] Exam - Exam Vital Signs: Vital Signs - Last Taken Temp 37.2 C 04/23/21 14:38 Pulse 106 H 04/23/21 17:10 Resp 24 H 04/23/21 17:10 BP 139/66 04/23/21 16:33 Pulse Ox 100 04/23/21 16:55 Constitutional: Present: Alert, Oriented x3, Cooperative, Well developed, No distress, Elderly, Obese ENT Exam: Present: normal ENT inspection, hearing grossly normal Eye Exam: bilateral eye: normal inspection, PERRL, EOMI Neck: Present: non-tender, full range of motion, supple, normal inspection, trachea midline Breasts: Present: Exam deferred Respiratory: Present: no respiratory distress, no accessory muscle use, wheezing Cardiovascular/Chest: Present: normal peripheral pulses, regular rate, rhythm, no chest tenderness, no edema, no gallop, no JVD, no murmur Peripheral Pulses: dorsalis-pedis (R): 2+, dorsalis-pedis (L): 2+ Abdomen: Present: soft, nontender, nondistended, no rebound tenderness, no hepatospenomegaly, no masses, obese /Rectal: Present: Other - Indwelling catheter in place with ongoing hematuria Extremity: Present: no pedal edema, no calf tenderness, normal capillary refill, leg pain - Left hip pain with externally rotated left lower extremity Skin Exam: Present: normal color, warm/dry, no cyanosis Lymphatic: Present: no adenopathy Neurologic: Present: fish boning machine feeder II-XII nml as tested, no motor/sensory deficits, alert, normal mood/affect, oriented x 3 Appearance: Present: appropriate appearance, appropriate insight, neat, no memory impairment Eye contact: Present: cooperative, good eye contact, normal speech Thoughts: Present: normal thought pattern, no apparent hallucination Diagnostic Studies: Abnormal Lab Results 04/23/21 04/23/21 04/23/21 Range/Units 07:39 08:00 08:00 RBC 2.58 L (4.2-5.4) M/mm3 Hgb 7.7 L* (12.5-16.0) gm/dL Hct 25.6 L (37.0-47.0) % MCHC 30.1 L (32-36) g/dl RDW 17.4 H (11.5-14.0) % Plt Count 148 L (150-450) K/mm3 Immature Gran % (Auto) 0.90 H (0.001-0.429) % Immature Gran # (Auto) 0.07 H (0.000-0.0310) K/mm3 Neutrophils % 88.4 H (42-75.0) % Lymphocytes % 2.1 L (20-51) % Neutrophils # 6.7 H (1.3-6.0) K/mm3 Lymphocytes # 0.16 L (1.5-3.5) k/mm3 PT (9.1-10.7) Seconds INR (Anticoag Therapy) (0.92-1.08) INR pCO2 50.1 H (32.0-45.0) mmHg pO2 (83.0-108.0) mmHg Total CO2 26.8 H (19.0-24.0) mmol/L ABG pH 7.32 L (7.35-7.45) Potassium 4.9 H (3.4-4.6) mmol/L Anion Gap 15.6 H (6.8-13.8) mmol/L BUN 24 H (3-23) mg/dL Creatinine 1.71 H (0.4-1.4) mg/dL Est GFR (Non-Af Amer) 31 L (60-130) mL/min Random Glucose 199 H (70-110) mg/dL Creatine Kinase (0-259) U/L B-Natriuretic Peptide 5375 H (5-550) pg/mL Total Protein 5.6 L (6.2-8.2) gm/dL Albumin 3.3 L (3.4-5.0) gm/dl Urine Protein (NEGATIVE) mg/dL Urine Glucose (UA) (NEGATIVE) mg/dL Urine Blood (NEGATIVE) /ul Urine Nitrate (NEGATIVE) Urine Bilirubin (NEGATIVE) mg/dl Ur Leukocyte Esterase (NEGATIVE) /ul Urine RBC (0-5) /hpf Urine WBC (0-5) /hpf Ur Epithelial Cells (0-5) /hpf Urine Bacteria (NONE) Crossmatch 04/23/21 04/23/21 04/23/21 Range/Units 08:00 08:00 08:20 RBC (4.2-5.4) M/mm3 Hgb (12.5-16.0) gm/dL Hct (37.0-47.0) % MCHC (32-36) g/dl RDW (11.5-14.0) % Plt Count (150-450) K/mm3 Immature Gran % (Auto) (0.001-0.429) % Immature Gran # (Auto) (0.000-0.0310) K/mm3 Neutrophils % (42-75.0) % Lymphocytes % (20-51) % Neutrophils # (1.3-6.0) K/mm3 Lymphocytes # (1.5-3.5) k/mm3 PT 12.1 H (9.1-10.7) Seconds INR (Anticoag Therapy) 1.17 H (0.92-1.08) INR pCO2 (32.0-45.0) mmHg pO2 (83.0-108.0) mmHg Total CO2 (19.0-24.0) mmol/L ABG pH (7.35-7.45) Potassium (3.4-4.6) mmol/L Anion Gap (6.8-13.8) mmol/L BUN (3-23) mg/dL Creatinine (0.4-1.4) mg/dL Est GFR (Non-Af Amer) (60-130) mL/min Random Glucose (70-110) mg/dL Creatine Kinase 499 H (0-259) U/L B-Natriuretic Peptide (5-550) pg/mL Total Protein (6.2-8.2) gm/dL Albumin (3.4-5.0) gm/dl Urine Protein (NEGATIVE) mg/dL Urine Glucose (UA) (NEGATIVE) mg/dL Urine Blood (NEGATIVE) /ul Urine Nitrate (NEGATIVE) Urine Bilirubin (NEGATIVE) mg/dl Ur Leukocyte Esterase (NEGATIVE) /ul Urine RBC (0-5) /hpf Urine WBC (0-5) /hpf Ur Epithelial Cells (0-5) /hpf Urine Bacteria (NONE) Crossmatch See Detail 04/23/21 04/23/21 04/23/21 Range/Units 09:08 18:00 18:04 RBC 2.92 L (4.2-5.4) M/mm3 Hgb 8.6 L (12.5-16.0) gm/dL Hct 28.0 L (37.0-47.0) % MCHC 30.7 L (32-36) g/dl RDW 17.5 H (11.5-14.0) % Plt Count 124 L (150-450) K/mm3 Immature Gran % (Auto) 1.10 H (0.001-0.429) % Immature Gran # (Auto) 0.06 H (0.000-0.0310) K/mm3 Neutrophils % 90.4 H (42-75.0) % Lymphocytes % 3.4 L (20-51) % Neutrophils # (1.3-6.0) K/mm3 Lymphocytes # 0.18 L (1.5-3.5) k/mm3 PT (9.1-10.7) Seconds INR (Anticoag Therapy) (0.92-1.08) INR pCO2 (32.0-45.0) mmHg pO2 68.9 L (83.0-108.0) mmHg Total CO2 25.8 H (19.0-24.0) mmol/L ABG pH 7.46 H (7.35-7.45) Potassium (3.4-4.6) mmol/L Anion Gap (6.8-13.8) mmol/L BUN (3-23) mg/dL Creatinine (0.4-1.4) mg/dL Est GFR (Non-Af Amer) (60-130) mL/min Random Glucose (70-110) mg/dL Creatine Kinase (0-259) U/L B-Natriuretic Peptide (5-550) pg/mL Total Protein (6.2-8.2) gm/dL Albumin (3.4-5.0) gm/dl Urine Protein >=300 H (NEGATIVE) mg/dL Urine Glucose (UA) 100 H (NEGATIVE) mg/dL Urine Blood 250 H (NEGATIVE) /ul Urine Nitrate Positive H (NEGATIVE) Urine Bilirubin 3 H (NEGATIVE) mg/dl Ur Leukocyte Esterase 25 H (NEGATIVE) /ul Urine RBC >50 H (0-5) /hpf Urine WBC 5-10 H (0-5) /hpf Ur Epithelial Cells 5-10 H (0-5) /hpf Urine Bacteria 1+ H (NONE) Crossmatch Laboratory Results WBC 5.3 K/mm3 (4.0-10.5) D 04/23/21 18:00 RBC 2.92 M/mm3 (4.2-5.4) L 04/23/21 18:00 Hgb 8.6 gm/dL (12.5-16.0) L 04/23/21 18:00 Hct 28.0 % (37.0-47.0) L 04/23/21 18:00 MCV 95.9 fl (78-100) 04/23/21 18:00 MCH 29.5 pg (27-31) 04/23/21 18:00 MCHC 30.7 g/dl (32-36) L 04/23/21 18:00 RDW 17.5 % (11.5-14.0) H 04/23/21 18:00 Plt Count 124 K/mm3 (150-450) L 04/23/21 18:00 MPV 9.2 fl (8-12.5) 04/23/21 18:00 Immature Gran % (Auto) 1.10 % (0.001-0.429) H 04/23/21 18:00 Immature Gran # (Auto) 0.06 K/mm3 (0.000-0.0310) H 04/23/21 18:00 Neutrophils % 90.4 % (42-75.0) H 04/23/21 18:00 Lymphocytes % 3.4 % (20-51) L 04/23/21 18:00 Monocytes % 4.9 % (0.0-9) 04/23/21 18:00 Eosinophils % 0.0 % (0.0-3.0) 04/23/21 18:00 Basophils % 0.2 % (0.0-1.0) 04/23/21 18:00 Nucleated RBC % 0.0 k/mm3 (0-1) 04/23/21 18:00 Neutrophils # 4.8 K/mm3 (1.3-6.0) 04/23/21 18:00 Lymphocytes # 0.18 k/mm3 (1.5-3.5) L 04/23/21 18:00 Monocytes # 0.3 k/mm3 (0.0-1.0) 04/23/21 18:00 Eosinophils # 0.0 k/mm3 (0.0-0.7) 04/23/21 18:00 Absolute Basophils 0.0 k/mm3 (0.0-0.1) 04/23/21 18:00 PT 12.1 Seconds (9.1-10.7) H 04/23/21 08:00 INR (Anticoag Therapy) 1.17 INR (0.92-1.08) H 04/23/21 08:00 PTT ([place]) 26.6 Seconds (24-32) 04/23/21 08:00 pCO2 35.2 mmHg (32.0-45.0) 04/23/21 18:04 pO2 68.9 mmHg (83.0-108.0) L 04/23/21 18:04 HCO3 24.7 mmol/L (21.0-28.0) 04/23/21 18:04 Total CO2 25.8 mmol/L (19.0-24.0) H 04/23/21 18:04 Base Excess 1.1 mmol/L (-2.0-3.0) 04/23/21 18:04 ABG pH 7.46 (7.35-7.45) H 04/23/21 18:04 ABG O2 Sat (Measured) 94.8 % (94.0-98.0) 04/23/21 18:04 Sodium 140 mmol/L (132-142) 04/23/21 08:00 Plasma Sodium 142 mmol/L (130-142) 04/23/21 08:00 Potassium 4.9 mmol/L (3.4-4.6) H 04/23/21 08:00 Chloride 104 mmol/L (97-106) 04/23/21 08:00 Carbon Dioxide 25.3 mmol/L (24-32.6) 04/23/21 08:00 Anion Gap 15.6 mmol/L (6.8-13.8) H 04/23/21 08:00 BUN 24 mg/dL (3-23) H 04/23/21 08:00 Creatinine 1.71 mg/dL (0.4-1.4) H 04/23/21 08:00 Est GFR (Non-Af Amer) 31 mL/min (60-130) L 04/23/21 08:00 BUN/Creatinine Ratio 14.0 (9.0-21.6) 04/23/21 08:00 Random Glucose 199 mg/dL (70-110) H 04/23/21 08:00 Lactic Acid, Venous 1.2 mmol/L (0.4-2.0) 04/23/21 08:00 Calcium 8.2 mg/dL (7.9-10.9) 04/23/21 08:00 Calcium Adj for Albumin 8.4 mg/dL (8.4-10.2) 04/23/21 08:00 Total Bilirubin 0.8 mg/dL (0.0-1.1) 04/23/21 08:00 AST 35 U/L (0-48) 04/23/21 08:00 ALT 27 U/L (19-67) 04/23/21 08:00 Alkaline Phosphatase 89 U/L (50-170) 04/23/21 08:00 Creatine Kinase 499 U/L (0-259) H 04/23/21 08:00 Troponin I 0.041 ng/mL (0.00-0.10) 04/23/21 08:00 B-Natriuretic Peptide 5375 pg/mL (5-550) H 04/23/21 08:00 Total Protein 5.6 gm/dL (6.2-8.2) L 04/23/21 08:00 Albumin 3.3 gm/dl (3.4-5.0) L 04/23/21 08:00 Urine Color Red 04/23/21 09:08 Urine Appearance Turbid (CLEAR) 04/23/21 09:08 Urine pH 6.5 pH (5.0-7.0) 04/23/21 09:08 Ur Specific [place] 1.020 SP.GR. (1.005-1.010) 04/23/21 09:08 Urine Protein >=300 mg/dL (NEGATIVE) H 04/23/21 09:08 Urine Glucose (UA) 100 mg/dL (NEGATIVE) H 04/23/21 09:08 Urine Ketones 5 mg/dL (NEGATIVE) 04/23/21 09:08 Urine Blood 250 /ul (NEGATIVE) H 04/23/21 09:08 Urine Nitrate Positive (NEGATIVE) H 04/23/21 09:08 Urine Bilirubin 3 mg/dl (NEGATIVE) H 04/23/21 09:08 Urine Urobilinogen Normal EU/dl (NORMAL) 04/23/21 09:08 Ur Leukocyte Esterase 25 /ul (NEGATIVE) H 04/23/21 09:08 Urine RBC >50 /hpf (0-5) H 04/23/21 09:08 Urine WBC 5-10 /hpf (0-5) H 04/23/21 09:08 Ur Epithelial Cells 5-10 /hpf (0-5) H 04/23/21 09:08 Urine Bacteria 1+ (NONE) H 04/23/21 09:08 Urine Culture Comments Culture to follow 04/23/21 09:08 SARS-CoV-2 (PCR) Not detected (NotDetected) 04/23/21 07:55 Blood Type A Positive 04/23/21 08:20 Antibody Screen Negative 04/23/21 08:20 Crossmatch See Detail 04/23/21 08:20 Assessment/Plan - Narrative Narrative: Patient was evaluated medical chart was reviewed and decision to admit for a left femoral neck fracture secondary to fall, UTI, decompensated CHF, hemorrhagic anemia, chronic hematuria due to bladder cancer was made. After evaluating the patient's condition and her chart it was determined that she could not be medically cleared for surgical repair of her left hip fracture. Patient has multiple comorbidities with multiple acute conditions that make the surgery too risky. Therefore after discussing the case with the patient and her power of claim attorney which is her son, it was determined that hospice care will be consulted to be set up in her home. In the meantime all of the patient's routine meds were reconciled to be administered during the hospitalization. The patient was also found to have an ongoing UTI for which she was placed on p.o. antibiotics by the different specialist that she sees so we will keep her on antibiotics during hospitalization for this infection. We will continue to monitor closely and manage her pain the best we can. - Assessment/Plan (1) Decompensated heart failure Problem: Acute (2) Hypoxia Problem: Acute (3) Acute and chronic respiratory failure with hypoxia Problem: Resolved (4) COPD exacerbation Problem: Acute (5) Hip pain Problem: Acute (6) Hip fracture Problem: Acute (7) Anemia Problem: Acute Qualifiers: Iron deficiency anemia type: chronic blood loss (8) COPD exacerbation Problem: Acute (9) GERD (gastroesophageal reflux disease) Problem: Chronic (10) Hyperlipidemia Problem: Chronic Qualifiers: (11) Lupus Problem: Chronic Qualifiers: (12) Lung cancer Problem: Chronic Qualifiers: (13) Hypothyroidism Problem: Chronic Qualifiers: (14) Hepatocellular carcinoma Problem: Chronic (15) GERD (gastroesophageal reflux disease) Problem: Chronic Qualifiers: Esophagitis presence: without esophagitis (16) Fibromyalgia Problem: Chronic (17) diabetes type II Problem: Chronic (18) COPD (chronic obstructive pulmonary disease) Problem: Chronic Qualifiers: (19) Anxiety Problem: Chronic (20) UTI (urinary tract infection) Problem: Acute (21) Respiratory acidosis Problem: Acute (22) Bladder cancer Problem: Chronic
[2021-04-23] MEDS: FUROSEMIDE 10 MG/ML VIAL IV SCH (20:06)
[2021-04-23] MEDS: FERROUS SULFATE 325 MG TABLET PO SCH (20:34)
[2021-04-23] MEDS: FLUTICASONE PROPIONATE 120 SPRAY INHALER NS SCH (20:34)
[2021-04-23] MEDS: PANTOPRAZOLE SODIUM 20 MG TABLET.DR PO SCH (20:35)
[2021-04-23] MEDS: SIMVASTATIN 20 MG TABLET PO SCH (20:36)
[2021-04-23] MEDS: SERTRALINE HCL 50 MG TABLET PO SCH (20:36)
[2021-04-23] MEDS ORDERED: BUDESONIDE 0.5 MG/2 ML VIAL.NEB IH SCH (21:00)
[2021-04-23] MEDS: INSULIN GLARGINE,HUM.REC.ANLOG 100 UNITS/ML VIAL SC SCH (21:29)
[2021-04-23] MEDS: CIPROFLOXACIN HCL 500 MG TABLET PO SCH (21:30)
[2021-04-23] MEDS ORDERED: CEPHALEXIN MONOHYDRATE 500 MG CAPSULE PO SCH (22:00)
[2021-04-24] MEDS: MORPHINE SULFATE 2 MG/ML DISP.SYRIN IV PRN ×3 (01:45→11:34)
[2021-04-24] MEDS: ALBUTEROL SULFATE/IPRATROPIUM 3 ML NEBU IH SCH ×6 (03:18→22:06)
[2021-04-24] MEDS: FUROSEMIDE 10 MG/ML VIAL IV SCH ×2 (05:24→17:02)
[2021-04-24] MEDS: BUDESONIDE 0.5 MG/2 ML VIAL.NEB IH SCH ×2 (06:03→18:19)
[2021-04-24 06:38] LABS: Anion Gap 12.8 mmol/L (6.8-13.8); BUN/Creatinine Ratio 15.1 (9.0-21.6); Bilirubin, Total 0.5 mg/dL (0.0-1.1); Ca. Corrected For Albumin 8.6 mg/dL (8.4-10.2); Calcium * 8.1 mg/dL (7.9-10.9); Carbon Dioxide 30.5 mmol/L (24-32.6); Potassium 3.3 mmol/L (3.4-4.6); Total Protein 5.9 gm/dL (6.2-8.2)
[2021-04-24] MEDS: LEVOTHYROXINE SODIUM 25 MCG TABLET PO SCH (07:31)
[2021-04-24] MEDS: SUCRALFATE 1 G/10 ML UDC PO SCH ×4 (07:31→20:25)
[2021-04-24] MEDS: INSULIN LISPRO 100 UNITS/ML VIAL SC SCH ×3 (07:31→17:06)
[2021-04-24] MEDS: PANTOPRAZOLE SODIUM 20 MG TABLET.DR PO SCH ×2 (07:31→20:27)
[2021-04-24] MEDS ORDERED: FUROSEMIDE 80 MG TABLET PO SCH (09:00)
[2021-04-24] MEDS ORDERED: ASCORBIC ACID 100 MG PO SCH (09:00)
[2021-04-24] MEDS ORDERED: POTASSIUM CHLORIDE 20 MEQ TABLET.SA PO ONE (09:37)
--- NOTE | 2021-04-24 09:48 | PN ---
Subjective - Date and Time Seen Date: 04/24/21 Time: 09:42 Subjective Narrative: I have pain in the left leg and hip Objective Objective Narrative: 75-year-old female admitted for left femoral neck fracture secondary to fall that occurred yesterday in her home was evaluated at bedside this morning was found to be afebrile and in no acute distress. Patient had an uneventful night but had to be treated with pain medications to manage pain which is expected with such an injury. This morning her only complaints are pain in the involved leg and some chest congestion, she was administered pain medications and a breathing treatment which helped. At the moment we are working on setting up hospice services at her home and a meeting will be held between the hospice agency and her family members in order to determine who will stay with her since the patient lives alone. Once we have all details in place we will discharge patient home to receive hospice care. This morning her potassium was decreased so she was administered potassium supplement. She maintained stable vitals and her chronic conditions are adequately controlled at the moment so we will just continue to monitor her. - Review of Systems Generalized/Overall Review: Reports: No Symptoms Reported EENTM: Reports: No Symptoms Reported Respiratory: Reports: No Symptoms Reported Cardiac: Reports: No Symptoms Reported Abdominal: Reports: No Symptoms Reported Genitourinary Symptoms: Reports: No Symptoms Reported Musculoskeletal Complaints: Reports: Joint Pain - Left hip pain Neurological: Reports: No Symptoms Reported Skin: Reports: No Symptoms Reported Endocrine: Reports: No Symptoms Reported - Vitals Vitals: Last Vital Signs Temp 36.4 C 04/24/21 06:43 Pulse 96 04/24/21 06:43 Resp 20 04/24/21 06:43 BP 119/51 04/24/21 06:43 Pulse Ox 95 04/24/21 06:43 - Abnormal Lab Findings Abnormal Lab Findings: Abnormal Lab Results 04/23/21 04/23/21 04/23/21 Range/Units 08:00 08:20 18:00 RBC 2.92 L (4.2-5.4) M/mm3 Hgb 8.6 L (12.5-16.0) gm/dL Hct 28.0 L (37.0-47.0) % MCHC 30.7 L (32-36) g/dl RDW 17.5 H (11.5-14.0) % Plt Count 124 L (150-450) K/mm3 Immature Gran % (Auto) 1.10 H (0.001-0.429) % Immature Gran # (Auto) 0.06 H (0.000-0.0310) K/mm3 Neutrophils % 90.4 H (42-75.0) % Lymphocytes % 3.4 L (20-51) % Lymphocytes # 0.18 L (1.5-3.5) k/mm3 pO2 (83.0-108.0) mmHg Total CO2 (19.0-24.0) mmol/L ABG pH (7.35-7.45) Potassium (3.4-4.6) mmol/L BUN (3-23) mg/dL Creatinine (0.4-1.4) mg/dL Est GFR (Non-Af Amer) (60-130) mL/min Random Glucose (70-110) mg/dL Creatine Kinase 499 H (0-259) U/L Total Protein (6.2-8.2) gm/dL Albumin (3.4-5.0) gm/dl Crossmatch See Detail 04/23/21 04/24/21 Range/Units 18:04 06:07 RBC (4.2-5.4) M/mm3 Hgb (12.5-16.0) gm/dL Hct (37.0-47.0) % MCHC (32-36) g/dl RDW (11.5-14.0) % Plt Count (150-450) K/mm3 Immature Gran % (Auto) (0.001-0.429) % Immature Gran # (Auto) (0.000-0.0310) K/mm3 Neutrophils % (42-75.0) % Lymphocytes % (20-51) % Lymphocytes # (1.5-3.5) k/mm3 pO2 68.9 L (83.0-108.0) mmHg Total CO2 25.8 H (19.0-24.0) mmol/L ABG pH 7.46 H (7.35-7.45) Potassium 3.3 L D (3.4-4.6) mmol/L BUN 27 H (3-23) mg/dL Creatinine 1.79 H (0.4-1.4) mg/dL Est GFR (Non-Af Amer) 29 L (60-130) mL/min Random Glucose 62 L D (70-110) mg/dL Creatine Kinase (0-259) U/L Total Protein 5.9 L (6.2-8.2) gm/dL Albumin 3.0 L (3.4-5.0) gm/dl Crossmatch - Exam Constitutional: Present: Alert, Oriented x3, Cooperative, Well developed, No distress, Elderly, Morbidly obese ENT Exam: Present: normal ENT inspection, hearing grossly normal Neck: Present: non-tender, full range of motion, supple, normal inspection, trachea midline Breasts: Present: Exam deferred Respiratory: Present: chest non-tender, no respiratory distress, no accessory muscle use, wheezing Cardiovascular/Chest: Present: normal peripheral pulses, regular rate, rhythm, no chest tenderness, no edema, no gallop, no JVD, no murmur, no rub Abdomen: Present: Normal bowel sounds, soft, nontender, nondistended, no rebound tenderness, no hepatospenomegaly, no masses, obese /Rectal: Present: Exam deferred Extremity: Present: normal range of motion, non-tender, normal inspection, no pedal edema, no calf tenderness Skin Exam: Present: normal color, warm/dry, no cyanosis Lymphatic: Present: no adenopathy Neurologic: Present: 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 Until then we will continue the current management. - Problems/Diagnosis (1) Decompensated heart failure Problem: Acute (2) Hypoxia Problem: Acute (3) Acute and chronic respiratory failure with hypoxia Problem: Resolved (4) COPD exacerbation Problem: Acute (5) Hip pain Problem: Acute (6) Hip fracture Problem: Acute (7) Anemia Problem: Acute Qualifiers: Iron deficiency anemia type: chronic blood loss (8) COPD exacerbation Problem: Acute (9) GERD (gastroesophageal reflux disease) Problem: Chronic (10) Hyperlipidemia Problem: Chronic Qualifiers: (11) Lupus Problem: Chronic Qualifiers: (12) Lung cancer Problem: Chronic Qualifiers: (13) Hypothyroidism Problem: Chronic Qualifiers: (14) Hepatocellular carcinoma Problem: Chronic (15) GERD (gastroesophageal reflux disease) Problem: Chronic Qualifiers: Esophagitis presence: without esophagitis (16) Fibromyalgia Problem: Chronic (17) diabetes type II Problem: Chronic (18) COPD (chronic obstructive pulmonary disease) Problem: Chronic Qualifiers: (19) Anxiety Problem: Chronic (20) UTI (urinary tract infection) Problem: Acute (21) Respiratory acidosis Problem: Acute (22) Bladder cancer Problem: Chronic (23) Hypokalemia Problem: Acute
[2021-04-24] MEDS: SPIRONOLACTONE 25 MG TABLET PO SCH (10:07)
[2021-04-24] MEDS: amLODIPine BESYLATE 10 MG TABLET PO SCH (10:07)
[2021-04-24] MEDS: CIPROFLOXACIN HCL 500 MG TABLET PO SCH ×2 (10:07→22:04)
[2021-04-24] MEDS: CHOLECALCIFEROL 1,000 UNIT CAPSULE PO SCH (10:08)
[2021-04-24] MEDS: SERTRALINE HCL 50 MG TABLET PO SCH ×2 (10:08→20:29)
[2021-04-24] MEDS: DOCUSATE SODIUM 100 MG CAPSULE PO SCH (10:08)
[2021-04-24] MEDS: CYANOCOBALAMIN 1,000 MCG TABLET PO SCH (10:08)
[2021-04-24] MEDS: LOSARTAN POTASSIUM 50 MG TABLET PO SCH (10:09)
[2021-04-24] MEDS: predniSONE 20 MG TABLET PO SCH (10:09)
[2021-04-24] MEDS: FERROUS SULFATE 325 MG TABLET PO SCH ×2 (10:10→20:25)
[2021-04-24] MEDS: FLUTICASONE PROPIONATE 120 SPRAY INHALER NS SCH ×2 (10:11→20:26)
[2021-04-24] MEDS: MORPHINE SULFATE 30 MG TABLET.SA PO SCH (14:21)
[2021-04-24] MEDS: MORPHINE SULFATE 10 MG/0.5 ML SYRINGE PO PRN ×3 (15:55→23:07)
[2021-04-24] MEDS: ACETAMINOPHEN 325 MG TABLET PO PRN ×2 (16:57→22:02)
[2021-04-24] MEDS: SIMVASTATIN 20 MG TABLET PO SCH (20:28)
[2021-04-24] MEDS: INSULIN GLARGINE,HUM.REC.ANLOG 100 UNITS/ML VIAL SC SCH (20:29)
[2021-04-25] MEDS: MORPHINE SULFATE 30 MG TABLET.SA PO SCH (01:14)
[2021-04-25] MEDS: ALBUTEROL SULFATE/IPRATROPIUM 3 ML NEBU IH SCH ×3 (02:06→11:00)
[2021-04-25] MEDS: MORPHINE SULFATE 10 MG/0.5 ML SYRINGE PO PRN ×6 (02:10→13:11)
[2021-04-25] MEDS: LEVOTHYROXINE SODIUM 25 MCG TABLET PO SCH (05:20)
[2021-04-25] MEDS: BUDESONIDE 0.5 MG/2 ML VIAL.NEB IH SCH (05:59)
[2021-04-25] MEDS: INSULIN LISPRO 100 UNITS/ML VIAL SC SCH ×2 (07:00→11:32)
[2021-04-25] MEDS: SUCRALFATE 1 G/10 ML UDC PO SCH ×2 (07:00→11:32)
[2021-04-25] MEDS: PANTOPRAZOLE SODIUM 20 MG TABLET.DR PO SCH (07:00)
[2021-04-25] MEDS: DOCUSATE SODIUM 100 MG CAPSULE PO SCH (08:33)
[2021-04-25] MEDS: SERTRALINE HCL 50 MG TABLET PO SCH (08:33)
[2021-04-25] MEDS: CHOLECALCIFEROL 1,000 UNIT CAPSULE PO SCH (08:33)
[2021-04-25] MEDS: FERROUS SULFATE 325 MG TABLET PO SCH (08:33)
[2021-04-25] MEDS: SPIRONOLACTONE 25 MG TABLET PO SCH (08:33)
[2021-04-25] MEDS: LOSARTAN POTASSIUM 50 MG TABLET PO SCH (08:34)
[2021-04-25] MEDS: CYANOCOBALAMIN 1,000 MCG TABLET PO SCH (08:34)
[2021-04-25] MEDS: amLODIPine BESYLATE 10 MG TABLET PO SCH (08:34)
[2021-04-25] MEDS: predniSONE 20 MG TABLET PO SCH (08:34)
[2021-04-25] MEDS: FLUTICASONE PROPIONATE 120 SPRAY INHALER NS SCH (08:35)
[2021-04-25] MEDS: CIPROFLOXACIN HCL 500 MG TABLET PO SCH (09:08)
[2021-04-25] MEDS ORDERED: [UNRECOGNIZED DRUG - OTHER] PO PRN (10:17)
[2021-04-25] MEDS ORDERED: HYDROCODONE PO PRN (10:17)
[2021-04-25] MEDS ORDERED: ACETAMINOPHEN PO PRN (10:17)
[2021-04-25] MEDS ORDERED: LORazepam 0.5 MG TABLET PO PRN (10:19)
--- NOTE | 2021-04-25 10:20 | DS ---
(1) Decompensated heart failure Problem: Resolved (2) Hypoxia Problem: Acute (3) Acute and chronic respiratory failure with hypoxia Problem: Resolved (4) COPD exacerbation Problem: Resolved (5) Hip pain Problem: Acute (6) Hip fracture Problem: Acute (7) Anemia Problem: Acute Qualifiers: Iron deficiency anemia type: chronic blood loss (8) COPD exacerbation Problem: Resolved (9) GERD (gastroesophageal reflux disease) Problem: Chronic (10) Hyperlipidemia Problem: Chronic Qualifiers: (11) Lupus Problem: Chronic Qualifiers: (12) Lung cancer Problem: Chronic Qualifiers: (13) Hypothyroidism Problem: Chronic Qualifiers: (14) Hepatocellular carcinoma Problem: Chronic (15) GERD (gastroesophageal reflux disease) Problem: Chronic Qualifiers: Esophagitis presence: without esophagitis Qualified Code(s): K21.9 - Gastro-esophageal reflux disease without esophagitis (16) Fibromyalgia Problem: Chronic (17) diabetes type II Problem: Chronic (18) COPD (chronic obstructive pulmonary disease) Problem: Chronic Qualifiers: (19) Anxiety Problem: Chronic (20) UTI (urinary tract infection) Problem: Acute (21) Respiratory acidosis Problem: Acute (22) Bladder cancer Problem: Chronic (23) Hypokalemia Problem: Acute Date of Discharge:: 04/25/21 Hospital Course: 75-year-old female admitted for a a left femoral neck fracture secondary to fall, decompensated CHF, COPD exacerbation, and acute on chronic respiratory failure was evaluated at bedside this morning was found to be afebrile and in no acute distress. Patient was unable to get surgical repair of her left hip fracture due to her high surgical risk. She arrived to the hospital and decompensated CHF and in respiratory failure. Family as well as the medical team felt it was safe for her to take a nonsurgical approach to a broken hip with just pain management and making the patient comfortable. The patient has a long history of cancer both bladder and lung cancer as well as significant heart disease that has resulted in CHF and other chronic morbidities such as type 2 diabetes hypertension and chronic kidney disease. Based on all these findings her life expectancy appears to short making taking such a surgical risk unjustified. Therefore, hospice services in her home have been set up and we will discharge her home today with medications to manage pain and her chronic conditions. She is to follow-up with her PCP in 1 week. Procedures Performed: none Results and Findings: Pending Mircobiology Results 04/23/21 08:00 Blood Blood Culture - Preliminary NO GROWTH AFTER 48 HOURS 04/23/21 07:50 Blood Blood Culture - Preliminary NO GROWTH AFTER 48 HOURS Lab Pending Results 04/23/21 07:39: pCO2 50.1 H, pO2 100.9, HCO3 25.2, Total CO2 26.8 H, Base Excess -1.2, ABG pH 7.32 L, ABG O2 Sat (Measured) 97.1 04/23/21 07:55: SARS-CoV-2 (PCR) Not detected 04/23/21 08:00: WBC 7.6, RBC 2.58 L, Hgb 7.7 L*, Hct 25.6 L, MCV 99.2, MCH 29.8, MCHC 30.1 L, RDW 17.4 H, Plt Count 148 L, MPV 9.3, Immature Gran % (Auto) 0.90 H, Immature Gran # (Auto) 0.07 H, Neutrophils % 88.4 H, Lymphocytes % 2.1 L, Monocytes % 8.2, Eosinophils % 0.0, Basophils % 0.4, Nucleated RBC % 0.0, Neutrophils # 6.7 H, Lymphocytes # 0.16 L, Monocytes # 0.6, Eosinophils # 0.0, Absolute Basophils 0.0 04/23/21 08:00: Sodium 140, Plasma Sodium 142, Potassium 4.9 H, Chloride 104, Carbon Dioxide 25.3, Anion Gap 15.6 H, BUN 24 H, Creatinine 1.71 H, Est GFR (Non-Af Amer) 31 L, BUN/Creatinine Ratio 14.0, Random Glucose 199 H, Calcium 8.2, Calcium Adj for Albumin 8.4, Total Bilirubin 0.8, AST 35, ALT 27, Alkaline Phosphatase 89, Troponin I 0.041, B-Natriuretic Peptide 5375 H, Total Protein 5.6 L, Albumin 3.3 L 04/23/21 08:00: Lactic Acid, Venous 1.2 04/23/21 08:00: PT 12.1 H, INR (Anticoag Therapy) 1.17 H, PTT (Loli) 26.6 04/23/21 08:00: Creatine Kinase 499 H 04/23/21 08:20: Blood Type A Positive, Antibody Screen Negative, Crossmatch See Detail 04/23/21 09:08: Urine Color Red, Urine Appearance Turbid, Urine pH 6.5, Ur Specific [place] 1.020, Urine Protein >=300 H, Urine Glucose (UA) 100 H, Urine Ketones 5, Urine Blood 250 H, Urine Nitrate Positive H, Urine Bilirubin 3 H, Urine Urobilinogen Normal, Ur Leukocyte Esterase 25 H, Urine RBC >50 H, Urine WBC 5-10 H, Ur Epithelial Cells 5-10 H, Urine Bacteria 1+ H, Urine Culture Comments Culture to follow 04/23/21 18:00: WBC 5.3 D, RBC 2.92 L, Hgb 8.6 L, Hct 28.0 L, MCV 95.9, MCH 29.5, MCHC 30.7 L, RDW 17.5 H, Plt Count 124 L, MPV 9.2, Immature Gran % (Auto) 1.10 H, Immature Gran # (Auto) 0.06 H, Neutrophils % 90.4 H, Lymphocytes % 3.4 L, Monocytes % 4.9, Eosinophils % 0.0, Basophils % 0.2, Nucleated RBC % 0.0, Neutrophils # 4.8, Lymphocytes # 0.18 L, Monocytes # 0.3, Eosinophils # 0.0, Absolute Basophils 0.0 04/23/21 18:04: pCO2 35.2, pO2 68.9 L, HCO3 24.7, Total CO2 25.8 H, Base Excess 1.1, ABG pH 7.46 H, ABG O2 Sat (Measured) 94.8 04/24/21 06:07: Sodium 141, Plasma Sodium 140, Potassium 3.3 L D, Chloride 101, Carbon Dioxide 30.5, Anion Gap 12.8, BUN 27 H, Creatinine 1.79 H, Est GFR (Non- Af Amer) 29 L, BUN/Creatinine Ratio 15.1, Random Glucose 62 L D, Calcium 8.1, Calcium Adj for Albumin 8.6, Total Bilirubin 0.5, AST 28, ALT 26, Alkaline Phosphatase 74, Total Protein 5.9 L, Albumin 3.0 L Discharge Location: Home Disposition: Hospice Home Home Health Agency: [facility] Condition: Fair Face to Face Encounter completed per CMS Guidelines: No Discharge Activity: Non-Weight bearing Discharge Diet: Consistent carbs, Low salt Referrals: Jozef Rosario MD [Primary Care Provider] - Additional Patient Instructions (free text): [facility] to follow patient at home new, please call and fax discharge information to them. Prescriptions (Any new or edited meds): Spironolactone [Aldactone] 25 mg PO DAILY #30 tab Transmission Status: Received by [facility] LORazepam [Ativan] 0.5 mg PO Q4H PRN #30 tab PRN Reason: Anxiety Transmission Status: Received by [facility] Docusate Sodium [Colace] 100 mg PO DAILY #30 cap Transmission Status: Received by [facility] Losartan Potassium [Cozaar] 50 mg PO DAILY #30 tab Transmission Status: Received by [facility] Morphine Sulfate 10 mg PO Q4H PRN #5 ml PRN Reason: Pain Transmission Status: Sent to [facility] Complete Home Medications List: Complete Home Medication List: Cholecalciferol (Vitamin D3) [Vitamin D3] 2,000 unit PO DAILY 05/16/17 blood-glucose meter See Dose Instructions .ROUTE .MEDSUPPLY #1 ea 06/10/18 compressor, for nebulizer See Dose Instructions .ROUTE .MEDSUPPLY #1 ea 06/10/18 cyanocobalamin (vitamin B-12) 1,000 mcg tablet 1,000 mcg PO DAILY 06/10/18 lancets 30 gauge See Dose Instructions .ROUTE .MEDSUPPLY #25 ea 06/10/18 morphine 15 mg tablet,extended release 30 mg PO Q12H tab 06/16/18 budesonide 0.5 mg/2 mL suspension for nebulization 0.5 mg IH BID #120 ml 07/28/19 Albuterol Sulfate/Ipratropium [Duoneb 2.5-0.5MG/3ML Soln] 3 ml INHALATION Q4HRT #120 nebu 01/31/20 pen needle, diabetic 31 gauge x 01/30" See Rx Instructions .ROUTE .MEDSUPPLY #100 ea 02/10/20 albuterol sulfate 90 mcg/actuation aerosol inhaler 2 inh IH Q4H PRN #8.5 g 03/15/20 Durable Medical Equipment See Rx Instructions .ROUTE .MEDSUPPLY #1 ea 07/06/20 fluticasone propionate 50 mcg/actuation nasal spray,suspension 2 spray TERRI BID #16 g 07/06/20 Blood Sugar Diagnostic [Contour Test Strip] See Rx Instructions .ROUTE .MEDSUPPLY #100 ea 09/23/20 Insulin Glargine,Hum.rec.anlog [Lantus Solostar] 20 unit SUBCUT HS #15 ml 09/23/20 Insulin Lispro [Humalog] 0 units SC ACINS vial 09/23/20 Levothyroxine Sodium [Synthroid] 25 mcg PO DAILY #90 tab 09/23/20 ipratropium 0.5 mg-albuterol 3 mg (2.5 mg base)/3 mL nebulization soln 3 ml IH Q6H PRN #180 ml 09/28/20 amlodipine 10 mg tablet 10 mg PO DAILY #90 tab 11/24/20 prednisone 20 mg tablet 20 mg PO DAILY #120 tab 01/11/21 sertraline 50 mg tablet 50 mg PO BID #180 tab 01/11/21 Ciprofloxacin HCl [Cipro] 500 mg PO BID #10 tab 01/22/21 HYDROmorphone HCL [Dilaudid] 2 mg PO Q4H PRN #18 tab 01/22/21 guaifenesin 1,200 mg tablet, extended release 12 hr 1,200 mg PO BID 01/23/21 simvastatin 20 mg tablet 20 mg PO HS #90 tab 01/23/21 ondansetron 4 mg disintegrating tablet 8 mg TRANSLINGUAL BID PRN #90 tab 01/25/21 ferrous sulfate 325 mg (65 mg iron) tablet 325 mg PO BID #180 tab 02/13/21 furosemide 40 mg tablet 80 mg PO DAILY #90 tab 03/02/21 flash glucose scanning reader See Rx Instructions .ROUTE .MEDSUPPLY #1 ea 03/13/21 flash glucose sensor See Rx Instructions .ROUTE .MEDSUPPLY #1 ea 03/13/21 HYDROcodone/ACETAMINOPHEN [Hydrocodone-Acetamin 10-325 mg] 1 ea PO BID PRN 04/23/21 Prochlorperazine Maleate [Compazine] 10 mg PO QID PRN 04/23/21 metFORMIN HCL [Metformin HCl] 1,000 mg PO BID 04/23/21 Docusate Sodium [Colace] 100 mg PO DAILY #30 cap 04/25/21 LORazepam [Ativan] 0.5 mg PO Q4H PRN #30 tab 04/25/21 Losartan Potassium [Cozaar] 50 mg PO DAILY #30 tab 04/25/21 Morphine Sulfate 10 mg PO Q4H PRN #5 ml 04/25/21 Spironolactone [Aldactone] 25 mg PO DAILY #30 tab 04/25/21 Forms: Patient Portal Registration
[2021-04-25 12:06] VITALS: BP 113/63
== END 2021-04-25 13:10 | disposition hospice, home (50) | DRG 535 ==
LOC: ER 07:17 → MS 13:29
PROVIDERS: ADMIT Family Medicine; ATTEND Family Medicine
DX: E11.22 Type 2 diabetes mellitus with diabetic chronic kidney disease; W19.XXXA Unspecified fall, initial encounter; Y92.009 Unspecified place in unspecified non-institutional (private) residence as the place of occurrence of the external cause; K21.9 Gastro-esophageal reflux disease without esophagitis; N39.0 Urinary tract infection, site not specified; C34.12 Malignant neoplasm of upper lobe, left bronchus or lung; C22.0 Liver cell carcinoma; M79.7 Fibromyalgia; E03.9 Hypothyroidism, unspecified; C67.9 Malignant neoplasm of bladder, unspecified; E87.2 Acidosis; S72.012A Unspecified intracapsular fracture of left femur, initial encounter for closed fracture; I25.2 Old myocardial infarction; M32.9 Systemic lupus erythematosus, unspecified; N18.30 Chronic kidney disease, stage 3 unspecified; I50.9 Heart failure, unspecified; J96.21 Acute and chronic respiratory failure with hypoxia; Z79.4 Long term (current) use of insulin; F41.8 Other specified anxiety disorders; J44.1 Chronic obstructive pulmonary disease with (acute) exacerbation; D50.0 Iron deficiency anemia secondary to blood loss (chronic); I25.10 Atherosclerotic heart disease of native coronary artery without angina pectoris; E78.5 Hyperlipidemia, unspecified